=== PATIENT | male | born 1975 | race African-American/Black ===

== ENCOUNTER 2018-04-22 13:12 | Inpatient (IN) | payer OTHER ==
[2018-04-22] MEDS ORDERED: NORMAL SALINE 1000 ML 1,000 ML IV PRN ×2 (14:00→17:24)
[2018-04-22] MEDS ORDERED: INSULIN REG, HUMAN 100 UNIT/ML 3 ML VIAL (PYX) IV ONE ×2 (14:00→16:19)
[2018-04-22] MEDS ORDERED: NORMAL SALINE 1000 ML 1,000 ML IV ONE ×2 (14:00→15:32)
--- NOTE | 2018-04-22 14:01 | ER Document Report ---
ED Medical Screen (RME) - General Chief Complaint: Abdominal Pain Stated Complaint: ABDOMINAL PAIN Time Seen by Provider: 04/22/18 13:52 Notes: 42 years old male presents today with nausea vomiting and diarrhea for the last few days with frequency of urination. His blood sugar was reading high in the ED. New onset diabetes TRAVEL OUTSIDE OF THE [place] IN LAST 30 DAYS: No - Related Data Allergies/Adverse Reactions: No Known Allergies Allergy (Unverified 04/22/18 13:17) Physical Exam - Vital signs Vitals: Temp Pulse Resp BP Pulse Ox 97.3 F 111 H 20 129/87 H 98 04/22/18 13:19 04/22/18 13:19 04/22/18 13:19 04/22/18 13:19 04/22/18 13:19 Course - Vital Signs Vital signs: Temp Pulse Resp BP Pulse Ox 97.3 F 111 H 20 129/87 H 98 04/22/18 13:19 04/22/18 13:19 04/22/18 13:19 04/22/18 13:19 04/22/18 13:19 Doctor's Discharge - Discharge Referrals: SHILA VILLA MD [Primary Care Provider] - Follow up as needed
[2018-04-22 15:13] LABS: ALANINE AMINOTRANSFERASE 45 U/L (21-72); ALBUMIN 5.3 g/dL (3.5-5.0); ALKALINE PHOSPHATASE 163 U/L (38-126); ASPARTATE AMINO TRANSFERASE 30 U/L (17-59); BILIRUBIN,DIRECT 0.5 mg/dL (0.0-0.4); BILIRUBIN,TOTAL 1.1 mg/dL (0.2-1.3); BLOOD UREA NITROGEN 40 mg/dL (7-20); CALCIUM 11.1 mg/dL (8.4-10.2); CHLORIDE 81 mmol/L (98-107); LIPASE 159.5 U/L (23-300); TOTAL PROTEIN 9.2 g/dL (6.3-8.2)
[2018-04-22] MEDS ORDERED: ONDANSETRON HCL INJ/PF 4 MG/2 ML SDV IV ONE (15:15)
[2018-04-22 15:18] LABS: SODIUM 127.6 mmol/L (137-145)
[2018-04-22 15:19] LABS: ANION GAP 38 (5-19)
[2018-04-22 15:23] LABS: CARBON DIOXIDE 9 mmol/L (22-30); GLUCOSE 681 mg/dL (75-110); POTASSIUM 7.2 mmol/L (3.6-5.0)
--- NOTE | 2018-04-22 15:23 | RADIOLOGY REPORT (SQ) ---
EXAM DESCRIPTION: KUB/ABDOMEN (SINGLE VIEW) COMPLETED DATE/TIME: 04/22/2018 3:15 pm REASON FOR STUDY: Abdominal pain COMPARISON: None. NUMBER OF VIEWS: One view. TECHNIQUE: Supine radiographic image of the abdomen acquired. LIMITATIONS: None. FINDINGS: BOWEL GAS PATTERN: Normal bowel gas pattern. No dilated loops. CALCIFICATIONS: No suspicious calcifications. SOFT TISSUES: No gross mass or suggestion of organomegaly. HARDWARE: None in the abdomen. BONES: No acute fracture. No worrisome bone lesions. OTHER: No other significant finding. IMPRESSION: NO RADIOGRAPHIC EVIDENCE FOR ACUTE ABDOMINAL DISEASE. TECHNICAL DOCUMENTATION: JOB ID: [id number] [id number] 2010 [employer]- All Rights Reserved Reading location - IP/workstation name: [email or web address]
[2018-04-22] MEDS ORDERED: GLUCAGON,HUMAN RECOMB 1 MG INJ IM PRN (15:28)
[2018-04-22] MEDS ORDERED: DEXTROSE 50%-WATER 25 GM/50 ML DISP.SYRIN IV PRN ×2 (15:28)
[2018-04-22] MEDS ORDERED: DEXTROSE 40% GEL 15 GM TUBE PO PRN ×2 (15:28)
--- NOTE | 2018-04-22 15:28 | ER Document Report ---
ED General - General Chief Complaint: Abdominal Pain Stated Complaint: ABDOMINAL PAIN Time Seen by Provider: 04/22/18 13:52 Notes: Patient is a 42-year-old male that presents to the emergency department for chief complaint of nausea, vomiting diarrhea, and overall not feeling well. Patient states is not been feeling well for several weeks, this is been progressing over the last few days, to the point where he decided come to the emergency department. He states he has been very thirsty, has a dry mouth, and has been urinating more frequently. Denies history of diabetes. He denies any sick contacts. Denies noting any fevers, chills, night sweats. He states he has been breathing more heavily as well. But denies feeling short of breath, and denies having any chest pain, palpitations, or difficulty breathing. Past Medical History: Hypertension, not currently on medication Past Surgical History: Denies surgical history Social History: Occasional alcohol use, denies tobacco or illicit drug use. Family History: Reviewed and noncontributory for presenting illness Allergies: Reviewed, see documented allergy list. REVIEW OF SYSTEMS: Unless otherwise stated in this report the patient's positive and negative responses for review of systems for constitutional, eyes, ENT, cardiovascular, respiratory, gastrointestinal, neurological, genitourinary, musculoskeletal, and integumentary systems and related systems to the presenting problem are either as stated in the HPI or were not pertinent or were negative for the symptoms and/or complaints related to the presenting medical problem. PHYSICAL EXAMINATION: Vital signs reviewed, nursing noted reviewed. GENERAL: Obese male, well-appearing, well-nourished and in moderate distress, increased work of breathing HEAD: Atraumatic, normocephalic. EYES: Eyes appear normal, extraocular movements intact, sclera anicteric, conjunctiva are normal. ENT: nares patent, oropharynx clear without exudates. Dry mucous membranes. NECK: Normal range of motion, supple without lymphadenopathy LUNGS: Breath sounds clear to auscultation bilaterally and equal. No wheezes rales or rhonchi. Increased work of breathing HEART: Heart rate tachycardic, regular rhythm, no audible murmur ABDOMEN: Soft, obese, nontender, normoactive bowel sounds. No rebound, guarding , or rigidity. No masses appreciated. EXTREMITIES: Nontender, good range of motion, trace bilateral lower extremity edema NEUROLOGICAL: No focal neurological deficits. Moves all extremities spontaneously Motor and sensory grossly intact on exam. PSYCH: Appears uncomfortable, appropriate. SKIN: Warm, Dry, normal turgor, no rashes or lesions noted on exposed skin TRAVEL OUTSIDE OF THE [place] IN LAST 30 DAYS: No - Related Data Allergies/Adverse Reactions: No Known Allergies Allergy (Unverified 04/22/18 13:17) Past Medical History - Social History Smoking Status: Never Smoker Frequency of alcohol use: None Drug Abuse: None Family History: Reviewed & Not Pertinent Patient has suicidal ideation: No Patient has homicidal ideation: No Renal/ Medical History: Denies: Hx Peritoneal Dialysis Physical Exam - Vital signs Vitals: Temp Pulse Resp BP Pulse Ox 97.3 F 111 H 20 129/87 H 98 04/22/18 13:19 04/22/18 13:19 04/22/18 13:19 04/22/18 13:19 04/22/18 13:19 Course - Re-evaluation Re-evalutation: Patient seen and examined vital signs reviewed. Laboratory data and imaging were ordered as appropriate for the patient's presenting symptoms and complaint, with consideration of any critical or life threatening conditions that may be associated with their obtained history and exam as noted above. Patient was treated with 3 L IV fluid bolus, started on insulin infusion, and given Zofran for his nausea Results were reviewed when available and demonstrated multiple lecture light abnormalities, consistent with DKA, severe metabolic acidosis, with an anion gap of 38. Patient's potassium 7.2, we will treat this with IV fluid bolusing, and insulin infusion, will avoid sodium bicarbonate at this time, no QRS widening on his EKG. The patient was re-evaluated and was stable and improving Evaluation was most consistent with severe diabetic ketoacidosis Results were discussed with the patient at this point after careful consideration I feel that that patient should be admitted to the hospital. This was discussed with the patient that it is in the best interest for their care to be admitted for further evaluation and management. Patient agreed with this plan of care. A call was placed to the admitted physician, Dr. Solano who graciously accepted the patient onto their service. *Note is created using voice recognition software and may contain spelling, syntax or grammatical errors. Laboratory 04/22/18 04/22/18 14:28 14:28 WBC Cancelled RBC Cancelled Hgb Cancelled Hct Cancelled MCV Cancelled MCH Cancelled MCHC Cancelled RDW Cancelled Plt Count Cancelled Seg Neutrophils % Cancelled Lymphocytes % Cancelled Monocytes % Cancelled Eosinophils % Cancelled Basophils % Cancelled Absolute Neutrophils Cancelled Absolute Lymphocytes Cancelled Absolute Monocytes Cancelled Absolute Eosinophils Cancelled Absolute Basophils Cancelled Platelet Estimate Cancelled Sodium 127.6 L Potassium 7.2 H* Chloride 81 L Carbon Dioxide 9 L* Anion Gap 38 H BUN 40 H Creatinine 1.95 H Est GFR ( Amer) 46 L Est GFR (Non-Af Amer) 38 L Glucose 681 H* Calcium 11.1 H Total Bilirubin 1.1 Direct Bilirubin 0.5 H Neonat Total Bilirubin Not Reportable Neonat Direct Bilirubin Not Reportable Neonat Indirect Bili Not Reportable AST 30 ALT 45 Alkaline Phosphatase 163 H Total Protein 9.2 H Albumin 5.3 H Lipase 159.5 Slides for Path Review Cancelled Laboratory 04/22/18 04/22/18 04/22/18 14:28 14:28 14:28 WBC Cancelled RBC Cancelled Hgb Cancelled Hct Cancelled MCV Cancelled MCH Cancelled MCHC Cancelled RDW Cancelled Plt Count Cancelled Seg Neutrophils % Cancelled Lymphocytes % Cancelled Monocytes % Cancelled Eosinophils % Cancelled Basophils % Cancelled Absolute Neutrophils Cancelled Absolute Lymphocytes Cancelled Absolute Monocytes Cancelled Absolute Eosinophils Cancelled Absolute Basophils Cancelled Platelet Estimate Cancelled VBG pH VBG pCO2 VBG HCO3 VBG Base Excess Sodium 127.6 L Potassium 7.2 H* Chloride 81 L Carbon Dioxide 9 L* Anion Gap 38 H BUN 40 H Creatinine 1.95 H Est GFR ( Amer) 46 L Est GFR (Non-Af Amer) 38 L Glucose 681 H* POC Glucose Hemoglobin A1c % > 14.0 H Lactic Acid Calcium 11.1 H Total Bilirubin 1.1 Direct Bilirubin 0.5 H Neonat Total Bilirubin Not Reportable Neonat Direct Bilirubin Not Reportable Neonat Indirect Bili Not Reportable AST 30 ALT 45 Alkaline Phosphatase 163 H Total Protein 9.2 H Albumin 5.3 H Lipase 159.5 Urine Color Urine Appearance Urine pH Ur Specific [place] Urine Protein Urine Glucose (UA) Urine Ketones Urine Blood Urine Nitrite Urine Bilirubin Urine Urobilinogen Ur Leukocyte Esterase Urine WBC (Auto) Urine RBC (Auto) Urine Bacteria (Auto) Squamous Epi Cells Auto Urine Mucus (Auto) Urine Ascorbic Acid Slides for Path Review Cancelled 04/22/18 04/22/18 04/22/18 16:00 16:00 16:36 WBC 21.0 H RBC 8.03 H Hgb 17.1 H Hct 55.6 H MCV 69 L MCH 21.3 L MCHC 30.7 L RDW 15.2 H Plt Count 453 H Seg Neutrophils % 86.9 H Lymphocytes % 5.7 L Monocytes % 6.9 Eosinophils % 0.0 Basophils % 0.5 Absolute Neutrophils 18.3 H Absolute Lymphocytes 1.2 Absolute Monocytes 1.4 Absolute Eosinophils 0.0 Absolute Basophils 0.1 Platelet Estimate VBG pH 7.16 L* VBG pCO2 32.6 L VBG HCO3 11.3 L VBG Base Excess -16.2 Sodium Potassium Chloride Carbon Dioxide Anion Gap BUN Creatinine Est GFR ( Amer) Est GFR (Non-Af Amer) Glucose POC Glucose Hemoglobin A1c % Lactic Acid Calcium Total Bilirubin Direct Bilirubin Neonat Total Bilirubin Neonat Direct Bilirubin Neonat Indirect Bili AST ALT Alkaline Phosphatase Total Protein Albumin Lipase Urine Color DARK YELLOW Urine Appearance SLIGHTLY-CLOUDY Urine pH 5.0 Ur Specific [place] 1.022 Urine Protein 30 H Urine Glucose (UA) >=500 H Urine Ketones 80 H Urine Blood SMALL H Urine Nitrite NEGATIVE Urine Bilirubin NEGATIVE Urine Urobilinogen NEGATIVE Ur Leukocyte Esterase NEGATIVE Urine WBC (Auto) 0 Urine RBC (Auto) 0 Urine Bacteria (Auto) TRACE Squamous Epi Cells Auto 1 Urine Mucus (Auto) RARE Urine Ascorbic Acid NEGATIVE Slides for Path Review 04/22/18 04/22/18 04/22/18 17:16 18:00 18:18 WBC RBC Hgb Hct MCV MCH MCHC RDW Plt Count Seg Neutrophils % Lymphocytes % Monocytes % Eosinophils % Basophils % Absolute Neutrophils Absolute Lymphocytes Absolute Monocytes Absolute Eosinophils Absolute Basophils Platelet Estimate VBG pH VBG pCO2 VBG HCO3 VBG Base Excess Sodium 134.1 L Potassium 5.6 H D Chloride 96 L Carbon Dioxide 8 L* Anion Gap 30 H BUN 34 H Creatinine 1.33 H Est GFR ( Amer) > 60 Est GFR (Non-Af Amer) 59 L Glucose 509 H* POC Glucose 542 H* 423 H* Hemoglobin A1c % Lactic Acid Calcium 9.4 Total Bilirubin Direct Bilirubin Neonat Total Bilirubin Neonat Direct Bilirubin Neonat Indirect Bili AST ALT Alkaline Phosphatase Total Protein Albumin Lipase Urine Color Urine Appearance Urine pH Ur Specific [place] Urine Protein Urine Glucose (UA) Urine Ketones Urine Blood Urine Nitrite Urine Bilirubin Urine Urobilinogen Ur Leukocyte Esterase Urine WBC (Auto) Urine RBC (Auto) Urine Bacteria (Auto) Squamous Epi Cells Auto Urine Mucus (Auto) Urine Ascorbic Acid Slides for Path Review 04/22/18 04/22/18 04/22/18 19:12 19:32 20:47 WBC RBC Hgb Hct MCV MCH MCHC RDW Plt Count Seg Neutrophils % Lymphocytes % Monocytes % Eosinophils % Basophils % Absolute Neutrophils Absolute Lymphocytes Absolute Monocytes Absolute Eosinophils Absolute Basophils Platelet Estimate VBG pH VBG pCO2 VBG HCO3 VBG Base Excess Sodium Potassium Chloride Carbon Dioxide Anion Gap BUN Creatinine Est GFR ( Amer) Est GFR (Non-Af Amer) Glucose POC Glucose 388 H 309 H Hemoglobin A1c % Lactic Acid 2.1 Calcium Total Bilirubin Direct Bilirubin Neonat Total Bilirubin Neonat Direct Bilirubin Neonat Indirect Bili AST ALT Alkaline Phosphatase Total Protein Albumin Lipase Urine Color Urine Appearance Urine pH Ur Specific [place] Urine Protein Urine Glucose (UA) Urine Ketones Urine Blood Urine Nitrite Urine Bilirubin Urine Urobilinogen Ur Leukocyte Esterase Urine WBC (Auto) Urine RBC (Auto) Urine Bacteria (Auto) Squamous Epi Cells Auto Urine Mucus (Auto) Urine Ascorbic Acid Slides for Path Review 04/22/18 04/22/18 04/22/18 21:56 22:00 22:53 WBC RBC Hgb Hct MCV MCH MCHC RDW Plt Count Seg Neutrophils % Lymphocytes % Monocytes % Eosinophils % Basophils % Absolute Neutrophils Absolute Lymphocytes Absolute Monocytes Absolute Eosinophils Absolute Basophils Platelet Estimate VBG pH VBG pCO2 VBG HCO3 VBG Base Excess Sodium 137.5 Potassium 5.0 Chloride 102 Carbon Dioxide 15 L Anion Gap 21 H BUN 29 H Creatinine 1.08 Est GFR ( Amer) > 60 Est GFR (Non-Af Amer) > 60 Glucose 320 H POC Glucose 290 H 329 H Hemoglobin A1c % Lactic Acid Calcium 8.9 Total Bilirubin Direct Bilirubin Neonat Total Bilirubin Neonat Direct Bilirubin Neonat Indirect Bili AST ALT Alkaline Phosphatase Total Protein Albumin Lipase Urine Color Urine Appearance Urine pH Ur Specific [place] Urine Protein Urine Glucose (UA) Urine Ketones Urine Blood Urine Nitrite Urine Bilirubin Urine Urobilinogen Ur Leukocyte Esterase Urine WBC (Auto) Urine RBC (Auto) Urine Bacteria (Auto) Squamous Epi Cells Auto Urine Mucus (Auto) Urine Ascorbic Acid Slides for Path Review KUB X-Ray 04/22/18 13:59 IMPRESSION: NO RADIOGRAPHIC EVIDENCE FOR ACUTE ABDOMINAL DISEASE. Chest X-Ray 04/22/18 15:52 IMPRESSION: NO ACUTE RADIOGRAPHIC FINDING IN THE CHEST. KUB X-Ray 04/22/18 13:59 IMPRESSION: NO RADIOGRAPHIC EVIDENCE FOR ACUTE ABDOMINAL DISEASE. - Vital Signs Vital signs: Temp Pulse Resp BP Pulse Ox 97.7 F 105 H 18 124/80 99 04/22/18 22:00 04/22/18 22:00 04/22/18 22:00 04/22/18 21:45 04/22/18 22:00 - Laboratory Result Diagrams: 04/22/18 16:00 04/22/18 22:00 Laboratory results interpreted by me: 04/22/18 04/22/18 04/22/18 14:28 14:28 16:00 WBC RBC Hgb Hct MCV MCH MCHC RDW Plt Count Seg Neutrophils % Lymphocytes % Absolute Neutrophils VBG pH 7.16 L* VBG pCO2 32.6 L VBG HCO3 11.3 L Sodium 127.6 L Potassium 7.2 H* Chloride 81 L Carbon Dioxide 9 L* Anion Gap 38 H BUN 40 H Creatinine 1.95 H Est GFR ( Amer) 46 L Est GFR (Non-Af Amer) 38 L Glucose 681 H* Hemoglobin A1c % > 14.0 H Calcium 11.1 H Direct Bilirubin 0.5 H Alkaline Phosphatase 163 H Total Protein 9.2 H Albumin 5.3 H 04/22/18 16:00 WBC 21.0 H RBC 8.03 H Hgb 17.1 H Hct 55.6 H MCV 69 L MCH 21.3 L MCHC 30.7 L RDW 15.2 H Plt Count 453 H Seg Neutrophils % 86.9 H Lymphocytes % 5.7 L Absolute Neutrophils 18.3 H VBG pH VBG pCO2 VBG HCO3 Sodium Potassium Chloride Carbon Dioxide Anion Gap BUN Creatinine Est GFR ( Amer) Est GFR (Non-Af Amer) Glucose Hemoglobin A1c % Calcium Direct Bilirubin Alkaline Phosphatase Total Protein Albumin - EKG Interpretation by Me Additional EKG results interpreted by me: EKG demonstrates sinus tachycardia with a ventricular rate of 106 bpm, normal axis, normal intervals, no evidence of acute ischemia on this EKG. No prior EKG for comparison. Critical Care Note - Critical Care Note Total time excluding time spent on procedures (mins): 50 Comments: Critical care time 50 minutes exclusive from separate billable procedures for a patient requiring complex medical decision making, and high potential for clinical deterioration. In a patient with severe diabetic ketoacidosis requiring aggressive fluid resuscitation, and frequent reassessments.. Time spent obtaining history from patient or surrogate, discussions with consultants , development of treatment plan with patient or surrogate, evaluation of patient 's response to treatment, examination of patient, ordering and performing treatments and interventions, ordering and review of laboratory studies, re- evaluation of patient's condition, ordering and review of radiographic studies and review of old charts Discharge - Discharge Clinical Impression: Hyperkalemia, Tachycardia DKA (diabetic ketoacidoses) Qualifiers: Diabetes mellitus type: other specified (including PEÑA) Diabetes mellitus complication detail: without coma Qualified Code(s): E13.10 - Other specified diabetes mellitus with ketoacidosis without coma Nausea & vomiting Qualifiers: Vomiting type: unspecified Vomiting Intractability: non-intractable Qualified Code(s): R11.2 - Nausea with vomiting, unspecified Diarrhea Qualifiers: Diarrhea type: unspecified type Qualified Code(s): R19.7 - Diarrhea, unspecified Condition: Serious Disposition: ADMITTED INPATIENT Admitting Provider: Hospitalist - Dr. Solano Unit Admitted: ICU
[2018-04-22 16:19] LABS: VENOUS BLOOD BASE EXCESS -16.2 mmol/L; VENOUS BLOOD HCO3 11.3 mmol/L (20-32); VENOUS BLOOD PCO2 32.6 mmHg (35-63)
[2018-04-22 16:22] LABS: VENOUS BLOOD PH 7.16 (7.30-7.42)
[2018-04-22] MEDS ORDERED: INSULIN REG, HUMAN 100 UNIT/ML 3 ML VIAL (PYX) ONE (16:26)
[2018-04-22] MEDS: NORMAL SALINE 100 ML with INSULIN REGULAR, HUMAN 100 UNIT IV PRN ×2 (16:34)
[2018-04-22 16:44] LABS: ABSOLUTE BASOPHILS # (AUTO) 0.1 10^3/uL (0.0-0.2); ABSOLUTE LYMPHOCYTES (AUTO) 1.2 10^3/uL (0.5-4.7); ABSOLUTE MONOCYTES (AUTO) 1.4 10^3/uL (0.1-1.4); ABSOLUTE NEUT (AUTO) 18.3 10^3/uL (1.7-8.2); BASOPHILS % (AUTO) 0.5 % (0-2); HEMOGLOBIN 17.1 g/dL (13.5-17.0); LYMPHOCYTES % (AUTO) 5.7 % (13-45); MEAN CORPUSCULAR HEMOGLOBIN 21.3 pg (27.0-33.4); MEAN CORPUSCULAR HGB CONC 30.7 g/dL (32.0-36.0); MEAN CORPUSCULAR VOLUME 69 fl (80-97); MONOCYTES % (AUTO) 6.9 % (3-13); PLATELET COUNT 453 10^3/uL (150-450); RED CELL DISTRIBUTION WIDTH 15.2 % (11.5-14.0); SEGMENTED NEUTROPHILS % (AUTO) 86.9 % (42-78); TOTAL CELLS COUNTED % (AUTO) 100 %
[2018-04-22 16:48] LABS: HEMATOCRIT 55.6 % (37.9-51.0); RED BLOOD COUNT 8.03 10^6/uL (4.35-5.55)
[2018-04-22 17:07] LABS: APPEARANCE,URINE SLIGHTLY-CLOUDY; BILIRUBIN,URINE NEGATIVE (NEGATIVE); GLUCOSE, URINE >=500 mg/dL (NEGATIVE); KETONES,URINE 80 mg/dL (NEGATIVE); LEUKOCYTE ESTERASE,URINE NEGATIVE (NEGATIVE); NITRITE,URINE NEGATIVE (NEGATIVE); PROTEIN,URINE 30 mg/dL (NEGATIVE); URINE SPECIFIC GRAVITY 1.022; UROBILINOGEN,URINE NEGATIVE mg/dL (<2.0)
[2018-04-22 17:08] LABS: COLOR,URINE DARK YELLOW
--- NOTE | 2018-04-22 17:33 | RADIOLOGY REPORT (SQ) ---
EXAM DESCRIPTION: CHEST SINGLE VIEW COMPLETED DATE/TIME: 04/22/2018 4:43 pm REASON FOR STUDY: shortness of breath COMPARISON: None. EXAM PARAMETERS: NUMBER OF VIEWS: One view. TECHNIQUE: Single frontal radiographic view of the chest acquired. RADIATION DOSE: NA LIMITATIONS: None. FINDINGS: LUNGS AND PLEURA: No opacities, masses or pneumothorax. No pleural effusion. MEDIASTINUM AND HILAR STRUCTURES: No masses. Contour normal. HEART AND VASCULAR STRUCTURES: Heart normal in size. Normal vasculature. BONES: No acute findings. HARDWARE: None in the chest. OTHER: No other significant finding. IMPRESSION: NO ACUTE RADIOGRAPHIC FINDING IN THE CHEST. TECHNICAL DOCUMENTATION: JOB ID: [id number] [place]-72 2010 [employer]- All Rights Reserved Reading location - IP/workstation name: [email or web address]
[2018-04-22] MEDS ORDERED: ONDANSETRON HCL INJ/PF 4 MG/2 ML SDV IV PRN (17:35)
[2018-04-22] MEDS: NORMAL SALINE 1000 ML 1,000 ML IV PRN (17:45)
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
[2018-04-22 18:46] LABS: BLOOD UREA NITROGEN 34 mg/dL (7-20); CALCIUM 9.4 mg/dL (8.4-10.2); CHLORIDE 96 mmol/L (98-107)
[2018-04-22 18:52] LABS: SODIUM 134.1 mmol/L (137-145)
[2018-04-22 18:55] LABS: ANION GAP 30 (5-19); POTASSIUM 5.6 mmol/L (3.6-5.0)
[2018-04-22 18:58] LABS: CARBON DIOXIDE 8 mmol/L (22-30); GLUCOSE 509 mg/dL (75-110)
--- NOTE | 2018-04-22 20:25 | EKG REPORT ---
SEVERITY:- BORDERLINE ECG - SINUS TACHYCARDIA PROBABLE LEFT ATRIAL ABNORMALITY : Confirmed by: Lissa Bauman MD 22-Apr-2018 20:24:39
[2018-04-22 22:16] LABS: BLOOD UREA NITROGEN 29 mg/dL (7-20); CALCIUM 8.9 mg/dL (8.4-10.2); GLUCOSE 320 mg/dL (75-110)
[2018-04-22 22:21] LABS: CARBON DIOXIDE 15 mmol/L (22-30); CHLORIDE 102 mmol/L (98-107); SODIUM 137.5 mmol/L (137-145)
[2018-04-22 22:22] LABS: ANION GAP 21 (5-19)
[2018-04-23] MEDS: NORMAL SALINE 1000 ML 1,000 ML IV PRN ×3 (01:08→20:59)
[2018-04-23] MEDS ORDERED: INSULIN REG, HUMAN 100 UNIT/ML 3 ML VIAL (PYX) ONE (01:46)
[2018-04-23] MEDS: NORMAL SALINE 100 ML with INSULIN REGULAR, HUMAN 100 UNIT IV PRN ×4 (02:03→08:34)
[2018-04-23 02:28] LABS: ANION GAP 14 (5-19); BLOOD UREA NITROGEN 26 mg/dL (7-20); CALCIUM 9.4 mg/dL (8.4-10.2); CARBON DIOXIDE 17 mmol/L (22-30); CHLORIDE 107 mmol/L (98-107); GLUCOSE 198 mg/dL (75-110); POTASSIUM 4.9 mmol/L (3.6-5.0); SODIUM 138.2 mmol/L (137-145)
[2018-04-23] MEDS: DEXTROSE 5%-1/2 NORMAL SALINE 1,000 ML IV PRN ×2 (03:04→08:29)
[2018-04-23 06:15] LABS: ANION GAP 10 (5-19); BLOOD UREA NITROGEN 22 mg/dL (7-20); CALCIUM 9.1 mg/dL (8.4-10.2); CARBON DIOXIDE 21 mmol/L (22-30); CHLORIDE 108 mmol/L (98-107); GLUCOSE 177 mg/dL (75-110); POTASSIUM 4.3 mmol/L (3.6-5.0); SODIUM 138.8 mmol/L (137-145)
[2018-04-23] MEDS: BENZOCAINE/MENTHOL SORE THROAT LOZENGE BUCCAL PRN ×2 (08:22→20:58)
[2018-04-23 08:40] LABS: ABSOLUTE BASOPHILS # (AUTO) 0.2 10^3/uL (0.0-0.2); ABSOLUTE LYMPHOCYTES (AUTO) 2.2 10^3/uL (0.5-4.7); ABSOLUTE MONOCYTES (AUTO) 1.6 10^3/uL (0.1-1.4); ABSOLUTE NEUT (AUTO) 10.8 10^3/uL (1.7-8.2); BASOPHILS % (AUTO) 1.2 % (0-2); EOSINOPHILS % (AUTO) 0.2 % (0-6); HEMATOCRIT 48.5 % (37.9-51.0); HEMOGLOBIN 15.5 g/dL (13.5-17.0); LYMPHOCYTES % (AUTO) 14.7 % (13-45); MEAN CORPUSCULAR HEMOGLOBIN 21.1 pg (27.0-33.4); MEAN CORPUSCULAR VOLUME 66 fl (80-97); MONOCYTES % (AUTO) 10.6 % (3-13); PLATELET COUNT 347 10^3/uL (150-450); RED BLOOD COUNT 7.36 10^6/uL (4.35-5.55); RED CELL DISTRIBUTION WIDTH 14.9 % (11.5-14.0); SEGMENTED NEUTROPHILS % (AUTO) 73.3 % (42-78); TOTAL CELLS COUNTED % (AUTO) 100 %; WHITE BLOOD COUNT 14.7 10^3/uL (4.0-10.5)
[2018-04-23] MEDS ORDERED: METOCLOPRAMIDE HCL ORAL SOLN 10 MG/10 ML UDCUP PO ONE (09:00)
[2018-04-23] MEDS ORDERED: MAG HYDROX/AL HYDROX/SIMETH SUSP 30 ML UDCUP PO ONE (09:00)
[2018-04-23] MEDS ORDERED: LIDOCAINE 2% VISCOUS SOLN 20 ML UDCUP PO ONE (09:00)
[2018-04-23] MEDS: ENOXAPARIN SODIUM INJ 30 MG/0.3 ML DISP.SYRIN SUBCUT SCH (09:11)
[2018-04-23] MEDS ORDERED: INSULIN DETEMIR 100 UNIT/ML 3 ML PEN SUBCUT SCH (10:00)
[2018-04-23] MEDS: INSULIN DETEMIR 100 UNIT/ML 3 ML PEN SUBCUT SCH ×2 (10:53→22:46)
[2018-04-23 11:36] LABS: ANION GAP 10 (5-19); BLOOD UREA NITROGEN 19 mg/dL (7-20); CALCIUM 8.8 mg/dL (8.4-10.2); CARBON DIOXIDE 21 mmol/L (22-30); CHLORIDE 105 mmol/L (98-107); GLUCOSE 208 mg/dL (75-110); POTASSIUM 4.6 mmol/L (3.6-5.0); SODIUM 136.2 mmol/L (137-145)
[2018-04-23] MEDS ORDERED: GLUCAGON,HUMAN RECOMB 1 MG INJ IM PRN (12:30)
[2018-04-23] MEDS ORDERED: DEXTROSE 50%-WATER SYRINGE 12.5 GM/25 ML DOSE IV PRN (12:30)
[2018-04-23] MEDS ORDERED: DEXTROSE 40% GEL 15 GM TUBE X 2 PO PRN (12:30)
[2018-04-23] MEDS ORDERED: DEXTROSE 40% GEL 15 GM TUBE PO PRN (12:30)
[2018-04-23] MEDS ORDERED: DEXTROSE 50%-WATER SYRINGE 25 GM/50 ML DOSE IV PRN (12:30)
[2018-04-23] MEDS: INSULIN LISPRO 100 UNIT/ML 3 ML VIAL SUBCUT PRN ×2 (12:47→18:00)
[2018-04-23] MEDS: NYSTATIN 500000 UNIT/5 ML UDCUP PO SCH ×2 (12:47→18:00)
--- NOTE | 2018-04-23 15:14 | PDOC PROGRESS REPORT ---
Subjective Progress Note for:: 04/23/18 Subjective:: DELMA LOCKE is a 42 year old male who denies a previous past medical history aside from a history of sleep apnea on CPAP who was admitted for severe DKA. Patient had episodes of apnea and transient desaturation on CPAP last night with very loud and persistent snoring. Patient's DKA has resolved. He denies acute complaints aside from throat dryness and discomfort. Denies chest pain, abdominal pain or shortness of breath. No recurrence of diarrhea so far. Patient had episodes of apnea and transient desaturation on CPAP last night. He does have low lying palate, large tongue with the uvula not visible on mouth opening. Reason For Visit: SEVERE DKA Physical Exam Vital Signs: Temp Pulse Resp BP Pulse Ox 97.1 F 94 21 H 123/82 98 04/23/18 14:00 04/23/18 14:00 04/23/18 14:00 04/23/18 14:00 04/23/18 14:00 Intake & Output 04/22/18 04/23/18 04/24/18 06:59 06:59 06:59 Intake Total 2554 4588 Output Total 1300 740 Balance 1254 3848 Weight 323 lb 10.217 oz General appearance: PRESENT: no acute distress, obese Head exam: PRESENT: atraumatic, normocephalic Eye exam: PRESENT: conjunctiva pink, EOMI, PERRLA. ABSENT: scleral icterus Ear exam: PRESENT: normal external ear exam Mouth exam: PRESENT: moist, tongue midline Throat exam: PRESENT: tonsillar erythema, other - No exudates, whitish lesions and he admits been upper palate Neck exam: ABSENT: carotid bruit, JVD, lymphadenopathy, thyromegaly Respiratory exam: PRESENT: clear to auscultation muna. ABSENT: rales, rhonchi, wheezes Cardiovascular exam: PRESENT: RRR. ABSENT: diastolic murmur, rubs, systolic murmur Pulses: PRESENT: normal dorsalis pedis pul GI/Abdominal exam: PRESENT: normal bowel sounds, soft. ABSENT: distended, guarding, mass, organolmegaly, rebound, tenderness Rectal exam: PRESENT: deferred Extremities exam: PRESENT: full ROM. ABSENT: calf tenderness, clubbing, pedal edema Neurological exam: PRESENT: alert, awake, oriented to person, oriented to place , oriented to time, oriented to situation, CN II-XII grossly intact. ABSENT: motor sensory deficit Results Laboratory Results: 04/23/18 05:54 04/23/18 10:53 04/22/18 04/22/18 04/22/18 18:00 19:12 22:00 WBC RBC Hgb Hct MCV MCH MCHC RDW Plt Count Seg Neutrophils % Lymphocytes % Monocytes % Eosinophils % Basophils % Absolute Neutrophils Absolute Lymphocytes Absolute Monocytes Absolute Eosinophils Absolute Basophils Sodium 134.1 L 137.5 Potassium 5.6 H D 5.0 Chloride 96 L 102 Carbon Dioxide 8 L* 15 L Anion Gap 30 H 21 H BUN 34 H 29 H Creatinine 1.33 H 1.08 Est GFR ( Amer) > 60 > 60 Est GFR (Non-Af Amer) 59 L > 60 Glucose 509 H* 320 H Lactic Acid 2.1 Calcium 9.4 8.9 04/23/18 04/23/18 04/23/18 02:02 05:54 05:54 WBC 14.7 H RBC 7.36 H Hgb 15.5 Hct 48.5 MCV 66 L MCH 21.1 L MCHC 32.0 RDW 14.9 H Plt Count 347 Seg Neutrophils % 73.3 Lymphocytes % 14.7 Monocytes % 10.6 Eosinophils % 0.2 Basophils % 1.2 Absolute Neutrophils 10.8 H Absolute Lymphocytes 2.2 Absolute Monocytes 1.6 H Absolute Eosinophils 0.0 Absolute Basophils 0.2 Sodium 138.2 138.8 Potassium 4.9 4.3 Chloride 107 108 H Carbon Dioxide 17 L 21 L Anion Gap 14 10 BUN 26 H 22 H Creatinine 0.88 0.83 Est GFR ( Amer) > 60 > 60 Est GFR (Non-Af Amer) > 60 > 60 Glucose 198 H 177 H Lactic Acid Calcium 9.4 9.1 04/23/18 10:53 WBC RBC Hgb Hct MCV MCH MCHC RDW Plt Count Seg Neutrophils % Lymphocytes % Monocytes % Eosinophils % Basophils % Absolute Neutrophils Absolute Lymphocytes Absolute Monocytes Absolute Eosinophils Absolute Basophils Sodium 136.2 L Potassium 4.6 Chloride 105 Carbon Dioxide 21 L Anion Gap 10 BUN 19 Creatinine 0.78 Est GFR ( Amer) > 60 Est GFR (Non-Af Amer) > 60 Glucose 208 H Lactic Acid Calcium 8.8 Impressions: KUB X-Ray 04/22/18 13:59 IMPRESSION: NO RADIOGRAPHIC EVIDENCE FOR ACUTE ABDOMINAL DISEASE. Chest X-Ray 04/22/18 15:52 IMPRESSION: NO ACUTE RADIOGRAPHIC FINDING IN THE CHEST. Assessment & Plan - Diagnosis (1) DKA (diabetic ketoacidoses) Qualifiers: Diabetes mellitus type: other specified (including PEÑA) Diabetes mellitus complication detail: without coma Qualified Code(s): E13.10 - Other specified diabetes mellitus with ketoacidosis without coma Is this a current diagnosis for this admission?: Yes Plan: Resolved. DKA is likely secondary to severely uncontrolled and undiagnosed diabetes mellitus. Patient is tolerating diet well. He will be transitioned to Levemir 15 units twice daily. Will titrate insulin regimen based on succeeding blood sugar levels. Discontinue insulin drip 2 hours after administration of Levemir. Continue sliding scale coverage. (2) Diabetes mellitus, new onset Is this a current diagnosis for this admission?: Yes Plan: Patient denies a previous diagnosis of diabetes. This is presumed to be type 2 diabetes mellitus. Patient likely has underlying undiagnosed diabetes mellitus in the past several months due to A1c being elevated at >14. Start Levemir 15 u bid. (3) Acute kidney injury Is this a current diagnosis for this admission?: Yes Plan: Resolved with Iv fluids.This is likely prerenal RANJAN from severe dehydration and DKA. Continue IV fluids. (4) High anion gap metabolic acidosis Is this a current diagnosis for this admission?: Yes Plan: Secondary to DKA. Resolved. (5) Acute diarrhea Is this a current diagnosis for this admission?: Yes Plan: Resolved. No episode of diarrhea since admission hence C. difficile testing was not sent. (6) BIMAL (obstructive sleep apnea) Is this a current diagnosis for this admission?: Yes Plan: Severe BIMAL. He does have low lying palate, large tongue with the uvula not visible on mouth opening. Patient had episodes of apnea and transient desaturation on CPAP last night. He has been switched to BIPAP at sleep/night. Will consult pulmonology for further recommendations. - Time Time Spent with patient: 25-34 minutes
[2018-04-23] MEDS: LANSOPRAZOLE 30 MG TAB.RAP.DR PO SCH (18:00)
[2018-04-23] MEDS: ACETAMINOPHEN 325 MG TABLET PO PRN (20:58)
[2018-04-24] MEDS: NYSTATIN 500000 UNIT/5 ML UDCUP PO SCH ×5 (00:18→23:51)
[2018-04-24 03:34] LABS: ANION GAP 12 (5-19); BLOOD UREA NITROGEN 15 mg/dL (7-20); CALCIUM 8.4 mg/dL (8.4-10.2); CARBON DIOXIDE 20 mmol/L (22-30); CHLORIDE 102 mmol/L (98-107); GLUCOSE 305 mg/dL (75-110); POTASSIUM 4.6 mmol/L (3.6-5.0); SODIUM 133.5 mmol/L (137-145)
[2018-04-24] MEDS: LANSOPRAZOLE 30 MG TAB.RAP.DR PO SCH ×2 (05:09→17:22)
[2018-04-24] MEDS: NORMAL SALINE 1000 ML 1,000 ML IV PRN ×3 (05:09→22:11)
[2018-04-24 05:37] LABS: ARTERIAL BLOOD BASE EXCESS -4.3 mmol/L; ARTERIAL BLOOD H2CO3 1.17 mmol/L (1.05-1.35); ARTERIAL BLOOD HCO3 20.9 mmol/L (20-24); ARTERIAL BLOOD O2 SATURATION 95.2 % (94-98); ARTERIAL BLOOD PCO2 38.9 mmHg (35-45); ARTERIAL BLOOD PH 7.35 (7.35-7.45); ARTERIAL BLOOD PO2 79.2 mmHg (80-100); ARTERIAL BLOOD TOTAL CO2 22.1 mmol/L (23-27)
[2018-04-24 05:38] LABS: ARTERIAL BLOOD FIO2 ROOM AIR
--- NOTE | 2018-04-24 06:59 | RADIOLOGY REPORT (SQ) ---
EXAM DESCRIPTION: XR CHEST 1 VIEW COMPLETED DATE/TME: 04/24/2018 06:00 CLINICAL HISTORY: 42 years Male, resp fail COMPARISON: 2 days prior. NUMBER OF VIEWS/TECHNIQUE: 1/AP FINDINGS: Clear lungs, normal cardiac silhouette. No pneumothorax. Stable bony thorax. IMPRESSION: No acute cardiopulmonary findings.
[2018-04-24 07:29] LABS: ABSOLUTE BASOPHILS # (AUTO) 0.1 10^3/uL (0.0-0.2); ABSOLUTE LYMPHOCYTES (AUTO) 2.2 10^3/uL (0.5-4.7); ABSOLUTE MONOCYTES (AUTO) 1.1 10^3/uL (0.1-1.4); ABSOLUTE NEUT (AUTO) 7.2 10^3/uL (1.7-8.2); BASOPHILS % (AUTO) 0.5 % (0-2); EOSINOPHILS % (AUTO) 0.3 % (0-6); HEMATOCRIT 44.4 % (37.9-51.0); HEMOGLOBIN 14.3 g/dL (13.5-17.0); MEAN CORPUSCULAR HEMOGLOBIN 21.4 pg (27.0-33.4); MEAN CORPUSCULAR HGB CONC 32.2 g/dL (32.0-36.0); MEAN CORPUSCULAR VOLUME 66 fl (80-97); MONOCYTES % (AUTO) 10.2 % (3-13); PLATELET COUNT 271 10^3/uL (150-450); RED BLOOD COUNT 6.68 10^6/uL (4.35-5.55); RED CELL DISTRIBUTION WIDTH 14.6 % (11.5-14.0); TOTAL CELLS COUNTED % (AUTO) 100 %; WHITE BLOOD COUNT 10.5 10^3/uL (4.0-10.5)
[2018-04-24 07:45] LABS: ALANINE AMINOTRANSFERASE 29 U/L (21-72); ALBUMIN 3.3 g/dL (3.5-5.0); ALKALINE PHOSPHATASE 102 U/L (38-126); ANION GAP 11 (5-19); ASPARTATE AMINO TRANSFERASE 48 U/L (17-59); BILIRUBIN,DIRECT 0.6 mg/dL (0.0-0.4); BILIRUBIN,TOTAL 2.1 mg/dL (0.2-1.3); BLOOD UREA NITROGEN 15 mg/dL (7-20); CALCIUM 8.8 mg/dL (8.4-10.2); CARBON DIOXIDE 22 mmol/L (22-30); CHLORIDE 102 mmol/L (98-107); CHOLESTEROL 162.26 mg/dL (0-200); GLUCOSE 260 mg/dL (75-110); POTASSIUM 4.7 mmol/L (3.6-5.0); SODIUM 134.7 mmol/L (137-145); TOTAL PROTEIN 6.2 g/dL (6.3-8.2); TRIGLYCERIDES 213 mg/dL (<150)
[2018-04-24 07:56] LABS: DIRECT LDL 98 mg/dL (<100)
[2018-04-24 08:01] LABS: VLDL CHOLESTEROL 42.6 mg/dL (10-31)
[2018-04-24] MEDS: INSULIN LISPRO 100 UNIT/ML 3 ML VIAL SUBCUT SCH ×3 (09:02→17:23)
[2018-04-24] MEDS: INSULIN LISPRO 100 UNIT/ML 3 ML VIAL SUBCUT PRN ×4 (09:03→22:25)
[2018-04-24] MEDS: FLUTICASONE NASAL SPRAY 50 MCG/SPRY 120 SPRAY/16 GM NASL SCH ×2 (10:35→22:12)
[2018-04-24] MEDS: NYSTATIN TOPICAL POWDER 15 GM TP SCH ×2 (10:36→17:27)
[2018-04-24] MEDS: INSULIN DETEMIR 100 UNIT/ML 3 ML PEN SUBCUT SCH ×2 (10:38→22:21)
[2018-04-24] MEDS: ENOXAPARIN SODIUM INJ 30 MG/0.3 ML DISP.SYRIN SUBCUT SCH (10:39)
--- NOTE | 2018-04-24 10:48 | PDOC CONSULTATION ---
Consultation Consult Date: 04/24/18 Attending physician:: DIVYA JAIME Consult reason:: Apnea History of Present Illness Admission Date/PCP: 04/22/18 16:36 SHILA VILLA MD History of Present Illness: DELMA LOCKE is a 42 year old male, presented to the ED for abdominal pain to be in DKA as per history of having diabetes admit to having obstructive sleep apnea and has CPAP at home but is not been evaluated this for this in the last 24 months had witnessed observed apneas despite being on BiPAP inspiratory pressure 20 expiratory pressure 8 with an FiO2 of 45%. Denies shortness of breath or dips and exertion at home he is a dairy truck driver he has occasional cough but is nonproductive no hemoptysis PPD status is unknown no history of chronic lung disease as a child or as an adolescent he admits to exposure to passive smoke as a child as well as an adult. He has never smoked. As stated above he is been a dairy truck driver and thinks been exposed to large amounts of passive smoke as well as diesel fumes. Has no pets no angina-like chest pain sleeps on 0-2 pillows occasional PND occasional nocturnal cough but he denies any edema spouse states that he snores is restless when he sleeps he admits to nocturia 3-4 times per night admits to unrestful sleep and excessive daytime somnolence. Past Medical History Pulmonary Medical History: Reports: Sleep Apnea Psychiatric Medical History: Denies: Depression Past Surgical History Past Surgical History: Reports: None Social History Information Source: Patient, [facility] Records Lives with: Spouse/Significant other Smoking Status: Never Smoker Passive smoke exposure as: Both Frequency of Alcohol Use: Rare Hx Recreational Drug Use: No Drugs: None Hx Prescription Drug Abuse: No Do you have pets?: No Have you had any respiratory illnesses as a child?: No Have you been exposed to any sick contacts recently?: No Have you had any recent respiratory illnesses?: No Have you travelled outside of [place] in the past 12 months?: No Family History Family History: Malignancy Parental Family History Reviewed: Yes Children Family History Reviewed: Yes Sibling(s) Family History Reviewed.: Yes Medication/Allergy Home Medications: No Home Medications 04/23/18 Allergies/Adverse Reactions: No Known Allergies Allergy (Unverified 04/22/18 13:17) Review of Systems Constitutional: PRESENT: fatigue. ABSENT: night sweats Eyes: ABSENT: visual disturbances Ears: ABSENT: hearing changes Nose, Mouth, and Throat: ABSENT: mouth pain, sore throat Cardiovascular: ABSENT: orthropnea, palpitations Respiratory: ABSENT: dyspnea, hemoptysis Gastrointestinal: PRESENT: abdominal pain, diarrhea. ABSENT: bloating, coffee ground emesis, dysphagia, heartburn, hematemesis, hematochezia, melena Genitourinary: ABSENT: dysuria, hematuria Musculoskeletal: ABSENT: deformity, joint swelling Integumentary: ABSENT: lesions, pruritus, rash Neurological: ABSENT: abnormal gait, abnormal movements, abnormal speech, confusion, focal weakness, frequent falls, lack of coordination, memory loss Psychiatric: ABSENT: hallucinations, homidical ideation, suicidal ideation Endocrine: PRESENT: polydipsia, polyuria. ABSENT: cold intolerance, heat intolerance Hematologic/Lymphatic: ABSENT: easy bruising Allergic/Immunologic: PRESENT: seasonal rhinorrhea Physical Exam Vital Signs: Temp Pulse Resp BP Pulse Ox 97.7 F 85 20 125/80 96 04/24/18 05:31 04/24/18 05:31 04/24/18 06:00 04/24/18 05:31 04/24/18 05:31 Intake & Output 04/23/18 04/24/18 04/25/18 06:59 06:59 06:59 Intake Total 2554 8828 Output Total 1300 3490 Balance 1254 5338 Weight 146.8 kg 148.2 kg General appearance: PRESENT: no acute distress, cooperative, disheveled, morbidly obese Head exam: PRESENT: atraumatic, normocephalic Eye exam: PRESENT: conjunctiva pale, EOMI. ABSENT: nystagmus, periorbital swelling, scleral icterus Mouth exam: PRESENT: dry mucosa, neck supple, tongue midline, other - Enlarged, Neck exam: ABSENT: carotid bruit, JVD, lymphadenopathy, thyromegaly, tracheal deviation, tracheostomy Respiratory exam: PRESENT: decreased breath sounds, prolonged expiratory phas, rhonchi, unlabored. ABSENT: retraction, stridor Cardiovascular exam: PRESENT: RRR, +S1, +S2 Pulses: PRESENT: normal radial pulses GI/Abdominal exam: PRESENT: soft. ABSENT: tenderness Extremities exam: ABSENT: calf tenderness, clubbing, joint swelling Musculoskeletal exam: ABSENT: deformity, dislocation Neurological exam: PRESENT: alert, awake Psychiatric exam: PRESENT: normal mood Skin exam: PRESENT: dry, warm Results Laboratory Results: 04/24/18 07:10 04/24/18 07:10 04/23/18 04/24/18 04/24/18 10:53 02:15 03:05 WBC RBC Hgb Hct MCV MCH MCHC RDW Plt Count Seg Neutrophils % Lymphocytes % Monocytes % Eosinophils % Basophils % Absolute Neutrophils Absolute Lymphocytes Absolute Monocytes Absolute Eosinophils Absolute Basophils Carbonic Acid HCO3/H2CO3 Ratio ABG pH ABG pCO2 ABG pO2 ABG HCO3 ABG O2 Saturation ABG Base Excess FiO2 Sodium 136.2 L Cancelled 133.5 L Potassium 4.6 Cancelled 4.6 Chloride 105 Cancelled 102 Carbon Dioxide 21 L Cancelled 20 L Anion Gap 10 Cancelled 12 BUN 19 Cancelled 15 Creatinine 0.78 Cancelled 0.72 Est GFR ( Amer) > 60 Cancelled > 60 Est GFR (Non-Af Amer) > 60 Cancelled > 60 Glucose 208 H Cancelled 305 H Calcium 8.8 Cancelled 8.4 Total Bilirubin AST ALT Alkaline Phosphatase Total Protein Albumin Triglycerides Cholesterol LDL Cholesterol Direct VLDL Cholesterol HDL Cholesterol 04/24/18 04/24/18 04/24/18 05:25 07:10 07:10 WBC 10.5 RBC 6.68 H Hgb 14.3 Hct 44.4 MCV 66 L MCH 21.4 L MCHC 32.2 RDW 14.6 H Plt Count 271 Seg Neutrophils % 68.0 Lymphocytes % 21.0 Monocytes % 10.2 Eosinophils % 0.3 Basophils % 0.5 Absolute Neutrophils 7.2 Absolute Lymphocytes 2.2 Absolute Monocytes 1.1 Absolute Eosinophils 0.0 Absolute Basophils 0.1 Carbonic Acid 1.17 HCO3/H2CO3 Ratio 17:1 ABG pH 7.35 ABG pCO2 38.9 ABG pO2 79.2 L ABG HCO3 20.9 ABG O2 Saturation 95.2 ABG Base Excess -4.3 FiO2 ROOM AIR Sodium 134.7 L Potassium 4.7 Chloride 102 Carbon Dioxide 22 Anion Gap 11 BUN 15 Creatinine 0.73 Est GFR ( Amer) > 60 Est GFR (Non-Af Amer) > 60 Glucose 260 H Calcium 8.8 Total Bilirubin 2.1 H AST 48 ALT 29 Alkaline Phosphatase 102 Total Protein 6.2 L Albumin 3.3 L Triglycerides 213 H Cholesterol 162.26 LDL Cholesterol Direct 98 VLDL Cholesterol 42.6 H HDL Cholesterol 31 L Impressions: KUB X-Ray 04/22/18 13:59 IMPRESSION: NO RADIOGRAPHIC EVIDENCE FOR ACUTE ABDOMINAL DISEASE. Chest X-Ray 04/24/18 06:00 IMPRESSION: No acute cardiopulmonary findings. Assessment & Plan - Diagnosis (1) Obesity Qualifiers: Obesity type: due to excess calories (2) DKA (diabetic ketoacidoses) Qualifiers: Diabetes mellitus type: other specified (including PEÑA) Diabetes mellitus complication detail: without coma Qualified Code(s): E13.10 - Other specified diabetes mellitus with ketoacidosis without coma Is this a current diagnosis for this admission?: Yes Plan: Improving, new onset diabetes (3) BIMAL (obstructive sleep apnea) Is this a current diagnosis for this admission?: Yes Plan: BiPAP at 20/8 still reported apneas needs to have a nocturnal polysomnogram the day of discharge and if these apneas a central obstructive have his BiPAP titrated or initiate trilogy - Time Total Critical Time (Minutes): 55
[2018-04-24 13:16] LABS: ANION GAP 12 (5-19); BLOOD UREA NITROGEN 14 mg/dL (7-20); CALCIUM 8.9 mg/dL (8.4-10.2); CARBON DIOXIDE 19 mmol/L (22-30); CHLORIDE 101 mmol/L (98-107); GLUCOSE 258 mg/dL (75-110); POTASSIUM 4.6 mmol/L (3.6-5.0); SODIUM 132.4 mmol/L (137-145)
[2018-04-24] MEDS: ACETAMINOPHEN 325 MG TABLET PO PRN ×2 (14:43→22:20)
--- NOTE | 2018-04-24 15:18 | PDOC PROGRESS REPORT ---
Subjective Progress Note for:: 04/24/18 Subjective:: DELMA LOCKE is a 42 year old male who denies a previous past medical history aside from a history of sleep apnea on CPAP who was admitted for severe DKA. Patient's DKA has resolved. He has been transitioned to long acting insulin. Denies chest pain, abdominal pain or shortness of breath. No recurrence of diarrhea so far. Patient continues to have episodes of apnea. He does have low lying palate, large tongue with the uvula not visible on mouth opening. He was not able to tolerate BIPAP this morning upon encounter as he complained of significant nasal congestion. He does complain of having some pruritic rashes on the groin. Sugars have been running in the 300s. Reason For Visit: SEVERE DKA Physical Exam Vital Signs: Temp Pulse Resp BP Pulse Ox 97.7 F 91 16 134/89 H 98 04/24/18 10:00 04/24/18 10:00 04/24/18 12:06 04/24/18 12:06 04/24/18 12:06 Intake & Output 04/23/18 04/24/18 04/25/18 06:59 06:59 06:59 Intake Total 2554 8828 2376 Output Total 1300 3490 1301 Balance 1254 5338 1075 Weight 323 lb 10.217 oz 326 lb 11.601 oz 326 lb 11.601 oz General appearance: PRESENT: no acute distress, morbidly obese Head exam: PRESENT: atraumatic, normocephalic Eye exam: PRESENT: conjunctiva pink, EOMI, PERRLA. ABSENT: scleral icterus Ear exam: PRESENT: normal external ear exam Mouth exam: PRESENT: moist, tongue midline Neck exam: ABSENT: carotid bruit, JVD, lymphadenopathy, thyromegaly Respiratory exam: PRESENT: clear to auscultation muna. ABSENT: rales, rhonchi, wheezes Cardiovascular exam: PRESENT: RRR. ABSENT: diastolic murmur, rubs, systolic murmur Pulses: PRESENT: normal dorsalis pedis pul GI/Abdominal exam: PRESENT: normal bowel sounds, soft. ABSENT: distended, guarding, mass, organolmegaly, rebound, tenderness Rectal exam: PRESENT: deferred Neurological exam: PRESENT: alert, awake, oriented to person, oriented to place , oriented to time, oriented to situation, CN II-XII grossly intact. ABSENT: motor sensory deficit Results Laboratory Results: 04/24/18 07:10 04/24/18 12:26 04/24/18 04/24/18 04/24/18 02:15 03:05 05:25 WBC RBC Hgb Hct MCV MCH MCHC RDW Plt Count Seg Neutrophils % Lymphocytes % Monocytes % Eosinophils % Basophils % Absolute Neutrophils Absolute Lymphocytes Absolute Monocytes Absolute Eosinophils Absolute Basophils Carbonic Acid 1.17 HCO3/H2CO3 Ratio 17:1 ABG pH 7.35 ABG pCO2 38.9 ABG pO2 79.2 L ABG HCO3 20.9 ABG O2 Saturation 95.2 ABG Base Excess -4.3 FiO2 ROOM AIR Sodium Cancelled 133.5 L Potassium Cancelled 4.6 Chloride Cancelled 102 Carbon Dioxide Cancelled 20 L Anion Gap Cancelled 12 BUN Cancelled 15 Creatinine Cancelled 0.72 Est GFR ( Amer) Cancelled > 60 Est GFR (Non-Af Amer) Cancelled > 60 Glucose Cancelled 305 H Calcium Cancelled 8.4 Total Bilirubin AST ALT Alkaline Phosphatase Total Protein Albumin Triglycerides Cholesterol LDL Cholesterol Direct VLDL Cholesterol HDL Cholesterol 04/24/18 04/24/18 04/24/18 07:10 07:10 12:26 WBC 10.5 RBC 6.68 H Hgb 14.3 Hct 44.4 MCV 66 L MCH 21.4 L MCHC 32.2 RDW 14.6 H Plt Count 271 Seg Neutrophils % 68.0 Lymphocytes % 21.0 Monocytes % 10.2 Eosinophils % 0.3 Basophils % 0.5 Absolute Neutrophils 7.2 Absolute Lymphocytes 2.2 Absolute Monocytes 1.1 Absolute Eosinophils 0.0 Absolute Basophils 0.1 Carbonic Acid HCO3/H2CO3 Ratio ABG pH ABG pCO2 ABG pO2 ABG HCO3 ABG O2 Saturation ABG Base Excess FiO2 Sodium 134.7 L 132.4 L Potassium 4.7 4.6 Chloride 102 101 Carbon Dioxide 22 19 L Anion Gap 11 12 BUN 15 14 Creatinine 0.73 0.63 Est GFR ( Amer) > 60 > 60 Est GFR (Non-Af Amer) > 60 > 60 Glucose 260 H 258 H Calcium 8.8 8.9 Total Bilirubin 2.1 H AST 48 ALT 29 Alkaline Phosphatase 102 Total Protein 6.2 L Albumin 3.3 L Triglycerides 213 H Cholesterol 162.26 LDL Cholesterol Direct 98 VLDL Cholesterol 42.6 H HDL Cholesterol 31 L Impressions: KUB X-Ray 04/22/18 13:59 IMPRESSION: NO RADIOGRAPHIC EVIDENCE FOR ACUTE ABDOMINAL DISEASE. Chest X-Ray 04/24/18 06:00 IMPRESSION: No acute cardiopulmonary findings. Assessment & Plan - Diagnosis (1) DKA (diabetic ketoacidoses) Qualifiers: Diabetes mellitus type: other specified (including PEÑA) Diabetes mellitus complication detail: without coma Qualified Code(s): E13.10 - Other specified diabetes mellitus with ketoacidosis without coma Is this a current diagnosis for this admission?: Yes Plan: Resolved. DKA is likely secondary to severely uncontrolled and undiagnosed diabetes mellitus. Patient is tolerating diet well. He was transitioned to levemir 15 u bid yesterday. Sugars are running high in the 300s. Will increase levemir to 17 u bid. Will also add 5 u TID of scheduled premeal coverage of Humalog. (2) Diabetes mellitus, new onset Is this a current diagnosis for this admission?: Yes Plan: Patient denies a previous diagnosis of diabetes. This is presumed to be type 2 diabetes mellitus. Patient likely has underlying undiagnosed diabetes mellitus in the past several months due to A1c being elevated at >14. Plan as #1. (3) Acute kidney injury Is this a current diagnosis for this admission?: Yes Plan: Resolved with Iv fluids. This was likely prerenal RANJAN from severe dehydration and DKA. Continue IV fluids. (4) High anion gap metabolic acidosis Is this a current diagnosis for this admission?: Yes Plan: Secondary to DKA. Resolved. (5) Acute diarrhea Is this a current diagnosis for this admission?: Yes Plan: Resolved. No episode of diarrhea since admission hence C. difficile testing was not sent. (6) BIMAL (obstructive sleep apnea) Is this a current diagnosis for this admission?: Yes Plan: Severe BIMAL. He does have low lying palate, large tongue with the uvula not visible on mouth opening. Continue BIPAP at night/sleep. Will follow-up on further pulm recommendations. - Time Time Spent with patient: 25-34 minutes
[2018-04-24 16:14] LABS: ANION GAP 10 (5-19); BLOOD UREA NITROGEN 14 mg/dL (7-20); CALCIUM 8.7 mg/dL (8.4-10.2); CARBON DIOXIDE 22 mmol/L (22-30); CHLORIDE 99 mmol/L (98-107); GLUCOSE 265 mg/dL (75-110); POTASSIUM 4.3 mmol/L (3.6-5.0)
[2018-04-24 19:30] LABS: ANION GAP 9 (5-19); BLOOD UREA NITROGEN 13 mg/dL (7-20); CALCIUM 8.6 mg/dL (8.4-10.2); CARBON DIOXIDE 23 mmol/L (22-30); CHLORIDE 99 mmol/L (98-107); GLUCOSE 289 mg/dL (75-110); POTASSIUM 4.1 mmol/L (3.6-5.0); SODIUM 130.8 mmol/L (137-145)
[2018-04-24 23:41] LABS: ANION GAP 12 (5-19); BLOOD UREA NITROGEN 12 mg/dL (7-20); CALCIUM 8.4 mg/dL (8.4-10.2); CARBON DIOXIDE 22 mmol/L (22-30); CHLORIDE 100 mmol/L (98-107); GLUCOSE 259 mg/dL (75-110); POTASSIUM 3.8 mmol/L (3.6-5.0); SODIUM 133.5 mmol/L (137-145)
[2018-04-25 03:38] LABS: ABSOLUTE BASOPHILS # (AUTO) 0.1 10^3/uL (0.0-0.2); ABSOLUTE EOSINOPHILS # (AUTO) 0.1 10^3/uL (0.0-0.6); ABSOLUTE LYMPHOCYTES (AUTO) 2.3 10^3/uL (0.5-4.7); ABSOLUTE NEUT (AUTO) 5.4 10^3/uL (1.7-8.2); BASOPHILS % (AUTO) 0.8 % (0-2); EOSINOPHILS % (AUTO) 0.7 % (0-6); HEMATOCRIT 43.4 % (37.9-51.0); HEMOGLOBIN 13.9 g/dL (13.5-17.0); MEAN CORPUSCULAR HEMOGLOBIN 21.2 pg (27.0-33.4); MEAN CORPUSCULAR HGB CONC 31.9 g/dL (32.0-36.0); MEAN CORPUSCULAR VOLUME 67 fl (80-97); MONOCYTES % (AUTO) 10.9 % (3-13); PLATELET COUNT 274 10^3/uL (150-450); RED BLOOD COUNT 6.52 10^6/uL (4.35-5.55); RED CELL DISTRIBUTION WIDTH 14.3 % (11.5-14.0); SEGMENTED NEUTROPHILS % (AUTO) 61.6 % (42-78); TOTAL CELLS COUNTED % (AUTO) 100 %; WHITE BLOOD COUNT 8.8 10^3/uL (4.0-10.5)
[2018-04-25 04:10] LABS: ANION GAP 9 (5-19); BLOOD UREA NITROGEN 11 mg/dL (7-20); CARBON DIOXIDE 26 mmol/L (22-30); CHLORIDE 100 mmol/L (98-107); GLUCOSE 232 mg/dL (75-110); POTASSIUM 4.2 mmol/L (3.6-5.0); SODIUM 134.9 mmol/L (137-145)
[2018-04-25] MEDS: NYSTATIN 500000 UNIT/5 ML UDCUP PO SCH ×4 (05:31→23:04)
[2018-04-25] MEDS: LANSOPRAZOLE 30 MG TAB.RAP.DR PO SCH ×2 (05:31→17:45)
[2018-04-25] MEDS: NORMAL SALINE 1000 ML 1,000 ML IV PRN ×3 (05:33→22:35)
[2018-04-25 06:44] LABS: ARTERIAL BLOOD BASE EXCESS -1.6 mmol/L; ARTERIAL BLOOD H2CO3 1.35 mmol/L (1.05-1.35); ARTERIAL BLOOD HCO3 24.1 mmol/L (20-24); ARTERIAL BLOOD O2 SATURATION 98.7 % (94-98); ARTERIAL BLOOD PCO2 44.7 mmHg (35-45); ARTERIAL BLOOD PH 7.35 (7.35-7.45); ARTERIAL BLOOD PO2 141.6 mmHg (80-100); ARTERIAL BLOOD TOTAL CO2 25.5 mmol/L (23-27)
[2018-04-25 06:45] LABS: ARTERIAL BLOOD FIO2 30%
[2018-04-25 07:15] LABS: ANION GAP 9 (5-19); BLOOD UREA NITROGEN 11 mg/dL (7-20); CALCIUM 8.8 mg/dL (8.4-10.2); CARBON DIOXIDE 24 mmol/L (22-30); CHLORIDE 102 mmol/L (98-107); GLUCOSE 238 mg/dL (75-110); POTASSIUM 4.1 mmol/L (3.6-5.0); SODIUM 135.1 mmol/L (137-145)
--- NOTE | 2018-04-25 09:04 | RADIOLOGY REPORT (SQ) ---
EXAM DESCRIPTION: CHEST SINGLE VIEW COMPLETED DATE/TIME: 04/25/2018 7:58 am REASON FOR STUDY: resp failure COMPARISON: 04/24/2018 EXAM PARAMETERS: NUMBER OF VIEWS: One view. TECHNIQUE: Single frontal radiographic view of the chest acquired. RADIATION DOSE: NA LIMITATIONS: None. FINDINGS: LUNGS AND PLEURA: No opacities, masses or pneumothorax. No pleural effusion. MEDIASTINUM AND HILAR STRUCTURES: No masses. Contour normal. HEART AND VASCULAR STRUCTURES: Heart normal in size. Normal vasculature. BONES: No acute findings. HARDWARE: None in the chest. OTHER: No other significant finding. IMPRESSION: NO ACUTE RADIOGRAPHIC FINDING IN THE CHEST. TECHNICAL DOCUMENTATION: JOB ID: [id number] [employer]- All Rights Reserved Reading location - IP/workstation name: [email or web address]
[2018-04-25] MEDS: INSULIN DETEMIR 100 UNIT/ML 3 ML PEN SUBCUT SCH ×2 (09:07→22:26)
[2018-04-25] MEDS: INSULIN LISPRO 100 UNIT/ML 3 ML VIAL SUBCUT SCH ×3 (09:07→17:46)
[2018-04-25] MEDS: INSULIN LISPRO 100 UNIT/ML 3 ML VIAL SUBCUT PRN ×4 (09:08→22:25)
[2018-04-25] MEDS: NYSTATIN TOPICAL POWDER 15 GM TP SCH ×2 (09:08→17:45)
[2018-04-25] MEDS: ENOXAPARIN SODIUM INJ 30 MG/0.3 ML DISP.SYRIN SUBCUT SCH (09:08)
--- NOTE | 2018-04-25 10:59 | PDOC PROGRESS REPORT ---
Subjective Progress Note for:: 04/25/18 Subjective:: 42-year-old male denies any significant past medical history except for sleep apnea using CPAP at home. Patient was admitted on 04/22/2018 with severe DKA anion gap of 38. DKA has resolved. Patient currently on long-acting insulin. No acute events overnight however patient says he cannot sleep due to thinking too much about his recently diagnosed diabetes. He states he has been having polydipsia polyuria and polyphagia for long time however he was not told that he has diabetes. History of obstructive sleep apnea on physical examination patient has a low- lying palate, large tongue which puts him at Mallampati stage IV Patient is a complaining of congestion but was able to tolerate BiPAP overnight. Patient had a good night sleep. Denies any fever, chills, nausea, vomiting, diarrhea, chest pain, shortness of breath, abdominal pain, constipation or any urinary symptoms. Reason For Visit: SEVERE DKA Physical Exam Vital Signs: Temp Pulse Resp BP Pulse Ox 97.6 F 84 16 145/77 H 100 04/25/18 03:28 04/25/18 07:00 04/25/18 03:58 04/25/18 03:28 04/25/18 03:28 Intake & Output 04/24/18 04/25/18 04/26/18 06:59 06:59 06:59 Intake Total 8828 5430 Output Total 3490 1301 Balance 5338 4129 Weight 148.2 kg 152.3 kg General appearance: PRESENT: no acute distress, obese, well-developed, well- nourished Head exam: PRESENT: atraumatic, normocephalic Eye exam: PRESENT: conjunctiva pink, EOMI, PERRLA. ABSENT: scleral icterus Ear exam: PRESENT: normal external ear exam Mouth exam: PRESENT: moist, tongue midline Neck exam: ABSENT: carotid bruit, JVD, lymphadenopathy, thyromegaly Respiratory exam: PRESENT: clear to auscultation muna. ABSENT: rales, rhonchi, wheezes Cardiovascular exam: PRESENT: RRR. ABSENT: diastolic murmur, rubs, systolic murmur Pulses: PRESENT: normal dorsalis pedis pul Vascular exam: PRESENT: normal capillary refill GI/Abdominal exam: PRESENT: normal bowel sounds, soft. ABSENT: distended, guarding, mass, organolmegaly, rebound, tenderness Rectal exam: PRESENT: deferred Extremities exam: PRESENT: full ROM. ABSENT: calf tenderness, clubbing, pedal edema Neurological exam: PRESENT: alert, awake, oriented to person, oriented to place , oriented to time, oriented to situation, CN II-XII grossly intact. ABSENT: motor sensory deficit Psychiatric exam: PRESENT: appropriate affect, normal mood. ABSENT: homicidal ideation, suicidal ideation Skin exam: PRESENT: dry, intact, warm. ABSENT: cyanosis, rash Results Laboratory Results: 04/25/18 03:18 04/25/18 06:51 04/24/18 04/24/18 04/24/18 12:26 15:25 19:05 WBC RBC Hgb Hct MCV MCH MCHC RDW Plt Count Seg Neutrophils % Lymphocytes % Monocytes % Eosinophils % Basophils % Absolute Neutrophils Absolute Lymphocytes Absolute Monocytes Absolute Eosinophils Absolute Basophils Carbonic Acid HCO3/H2CO3 Ratio ABG pH ABG pCO2 ABG pO2 ABG HCO3 ABG O2 Saturation ABG Base Excess FiO2 Sodium 132.4 L 131.0 L 130.8 L Potassium 4.6 4.3 4.1 Chloride 101 99 99 Carbon Dioxide 19 L 22 23 Anion Gap 12 10 9 BUN 14 14 13 Creatinine 0.63 0.65 0.68 Est GFR ( Amer) > 60 > 60 > 60 Est GFR (Non-Af Amer) > 60 > 60 > 60 Glucose 258 H 265 H 289 H Calcium 8.9 8.7 8.6 Magnesium 04/24/18 04/25/18 04/25/18 23:10 03:18 03:18 WBC 8.8 RBC 6.52 H Hgb 13.9 Hct 43.4 MCV 67 L MCH 21.2 L MCHC 31.9 L RDW 14.3 H Plt Count 274 Seg Neutrophils % 61.6 Lymphocytes % 26.0 Monocytes % 10.9 Eosinophils % 0.7 Basophils % 0.8 Absolute Neutrophils 5.4 Absolute Lymphocytes 2.3 Absolute Monocytes 1.0 Absolute Eosinophils 0.1 Absolute Basophils 0.1 Carbonic Acid HCO3/H2CO3 Ratio ABG pH ABG pCO2 ABG pO2 ABG HCO3 ABG O2 Saturation ABG Base Excess FiO2 Sodium 133.5 L 134.9 L Potassium 3.8 4.2 Chloride 100 100 Carbon Dioxide 22 26 Anion Gap 12 9 BUN 12 11 Creatinine 0.66 0.67 Est GFR ( Amer) > 60 > 60 Est GFR (Non-Af Amer) > 60 > 60 Glucose 259 H 232 H Calcium 8.4 9.0 Magnesium 2.4 H 04/25/18 04/25/18 06:30 06:51 WBC RBC Hgb Hct MCV MCH MCHC RDW Plt Count Seg Neutrophils % Lymphocytes % Monocytes % Eosinophils % Basophils % Absolute Neutrophils Absolute Lymphocytes Absolute Monocytes Absolute Eosinophils Absolute Basophils Carbonic Acid 1.35 HCO3/H2CO3 Ratio 17:1 ABG pH 7.35 ABG pCO2 44.7 ABG pO2 141.6 H ABG HCO3 24.1 H ABG O2 Saturation 98.7 H ABG Base Excess -1.6 FiO2 30% Sodium 135.1 L Potassium 4.1 Chloride 102 Carbon Dioxide 24 Anion Gap 9 BUN 11 Creatinine 0.58 Est GFR ( Amer) > 60 Est GFR (Non-Af Amer) > 60 Glucose 238 H Calcium 8.8 Magnesium Impressions: KUB X-Ray 04/22/18 13:59 IMPRESSION: NO RADIOGRAPHIC EVIDENCE FOR ACUTE ABDOMINAL DISEASE. Chest X-Ray 04/25/18 06:00 IMPRESSION: NO ACUTE RADIOGRAPHIC FINDING IN THE CHEST. Assessment & Plan - Diagnosis (1) BIMAL (obstructive sleep apnea) Is this a current diagnosis for this admission?: Yes Plan: On BiPAP at 20/8 still reporting sleep apnea's. Patient to have polysomnography as per pulmonology recommendation so he can be discharged either on BiPAP or trilogy. (2) DKA (diabetic ketoacidoses) Qualifiers: Diabetes mellitus type: other specified (including PEÑA) Diabetes mellitus complication detail: without coma Qualified Code(s): E13.10 - Other specified diabetes mellitus with ketoacidosis without coma Is this a current diagnosis for this admission?: Yes Plan: Resolved. Anion gap WNL. DKA most likely due to severely uncontrolled and undiagnosed diabetes. Patient is off of insulin drip. Tolerating p.o. diet. Increase Levemir to 19 units twice daily, increase pre-meal insulin to 8, continue sliding scale. Patient is very concerned about his newly diagnosed diabetes. He was extensively counseled about diabetes, its management and complication. Patient was advised to follow-up with his PCP after his discharge from hospital and also to log his blood sugar level at home and take it to his PCP so that his insulin dosage could be managed. Patient received diabetes education by nursing staff while in the hospital. Patient was also advised to follow-up with clerical administrator and PCP to find out if patient has diabetes type 2 or type I. (3) Acute kidney injury Is this a current diagnosis for this admission?: Yes Plan: Resolved. Possibly prerenal caused by severe dehydration and DKA. Follow-up with PCP and nephrology. Avoid nephrotoxic agents. Treat diabetes. (4) Diabetes mellitus, new onset Is this a current diagnosis for this admission?: Yes Plan: Denies any personal or family history of diabetes. However he states that he has been having polyphagia, polydipsia, polyuria for the last 2 years and was never told that he has diabetes. Hemoglobin A1c is more than 14% on admission. Blood glucose level and low 200s. Continue long and short-acting insulin. Adjust medications as needed. Goal of fasting blood sugar is around 120s. Patient is to follow-up with PCP for adjustment of his insulin dosage. She was extensively counseled about diabetes and its complication and its management. He was to follow-up with PCP with a log of his blood glucose level at home. (5) High anion gap metabolic acidosis Is this a current diagnosis for this admission?: Yes Plan: Secondary to DKA. Resolved. (6) Obesity Qualifiers: Obesity type: due to excess calories Body mass index: BMI 40.0-44.9 Is this a current diagnosis for this admission?: Yes Plan: Patient was counseled on diet and lifestyle modification. Continue diabetic diet. (7) Dyslipidemia Is this a current diagnosis for this admission?: Yes Plan: ASCVD score of 8.8%. Will start on high intensity statins. Diet and lifestyle modification.
[2018-04-25 11:52] LABS: ANION GAP 9 (5-19); BLOOD UREA NITROGEN 12 mg/dL (7-20); CALCIUM 8.8 mg/dL (8.4-10.2); CARBON DIOXIDE 23 mmol/L (22-30); CHLORIDE 100 mmol/L (98-107); GLUCOSE 247 mg/dL (75-110); POTASSIUM 4.6 mmol/L (3.6-5.0); SODIUM 132.3 mmol/L (137-145)
[2018-04-25] MEDS: FLUTICASONE NASAL SPRAY 50 MCG/SPRY 120 SPRAY/16 GM NASL SCH ×2 (12:20→22:31)
[2018-04-25] MEDS: ACETAMINOPHEN 325 MG TABLET PO PRN (12:20)
[2018-04-25] MEDS ORDERED: CETIRIZINE 5 MG TABLET PO ONE (13:00)
--- NOTE | 2018-04-25 14:53 | PDOC PROGRESS REPORT ---
Subjective Progress Note for:: 04/25/18 Subjective:: Better today Reason For Visit: SEVERE DKA Physical Exam Vital Signs: Temp Pulse Resp BP Pulse Ox 97.6 F 84 16 145/77 H 100 04/25/18 03:28 04/25/18 07:00 04/25/18 03:58 04/25/18 03:28 04/25/18 03:28 Intake & Output 04/24/18 04/25/18 04/26/18 06:59 06:59 06:59 Intake Total 8828 5430 1000 Output Total 3490 1301 Balance 5338 4129 1000 Weight 148.2 kg 152.3 kg General appearance: PRESENT: no acute distress, cooperative, disheveled, morbidly obese Head exam: PRESENT: atraumatic, normocephalic Eye exam: PRESENT: EOMI. ABSENT: nystagmus, scleral icterus Mouth exam: PRESENT: dry mucosa, neck supple, tongue midline Neck exam: ABSENT: carotid bruit, JVD, lymphadenopathy, thyromegaly, tracheal deviation, tracheostomy Respiratory exam: PRESENT: decreased breath sounds, prolonged expiratory phas, rhonchi, unlabored. ABSENT: retraction, stridor Cardiovascular exam: PRESENT: RRR, +S1, +S2 Pulses: PRESENT: normal radial pulses GI/Abdominal exam: PRESENT: soft. ABSENT: tenderness Extremities exam: PRESENT: pedal edema. ABSENT: calf tenderness, clubbing, joint swelling Musculoskeletal exam: ABSENT: deformity, dislocation Neurological exam: PRESENT: alert, awake Psychiatric exam: PRESENT: normal mood Skin exam: PRESENT: dry, warm Results Laboratory Results: 04/25/18 03:18 04/25/18 11:10 04/24/18 04/24/18 04/24/18 15:25 19:05 23:10 WBC RBC Hgb Hct MCV MCH MCHC RDW Plt Count Seg Neutrophils % Lymphocytes % Monocytes % Eosinophils % Basophils % Absolute Neutrophils Absolute Lymphocytes Absolute Monocytes Absolute Eosinophils Absolute Basophils Carbonic Acid HCO3/H2CO3 Ratio ABG pH ABG pCO2 ABG pO2 ABG HCO3 ABG O2 Saturation ABG Base Excess FiO2 Sodium 131.0 L 130.8 L 133.5 L Potassium 4.3 4.1 3.8 Chloride 99 99 100 Carbon Dioxide 22 23 22 Anion Gap 10 9 12 BUN 14 13 12 Creatinine 0.65 0.68 0.66 Est GFR ( Amer) > 60 > 60 > 60 Est GFR (Non-Af Amer) > 60 > 60 > 60 Glucose 265 H 289 H 259 H Calcium 8.7 8.6 8.4 Magnesium 04/25/18 04/25/18 04/25/18 03:18 03:18 06:30 WBC 8.8 RBC 6.52 H Hgb 13.9 Hct 43.4 MCV 67 L MCH 21.2 L MCHC 31.9 L RDW 14.3 H Plt Count 274 Seg Neutrophils % 61.6 Lymphocytes % 26.0 Monocytes % 10.9 Eosinophils % 0.7 Basophils % 0.8 Absolute Neutrophils 5.4 Absolute Lymphocytes 2.3 Absolute Monocytes 1.0 Absolute Eosinophils 0.1 Absolute Basophils 0.1 Carbonic Acid 1.35 HCO3/H2CO3 Ratio 17:1 ABG pH 7.35 ABG pCO2 44.7 ABG pO2 141.6 H ABG HCO3 24.1 H ABG O2 Saturation 98.7 H ABG Base Excess -1.6 FiO2 30% Sodium 134.9 L Potassium 4.2 Chloride 100 Carbon Dioxide 26 Anion Gap 9 BUN 11 Creatinine 0.67 Est GFR ( Amer) > 60 Est GFR (Non-Af Amer) > 60 Glucose 232 H Calcium 9.0 Magnesium 2.4 H 04/25/18 04/25/18 06:51 11:10 WBC RBC Hgb Hct MCV MCH MCHC RDW Plt Count Seg Neutrophils % Lymphocytes % Monocytes % Eosinophils % Basophils % Absolute Neutrophils Absolute Lymphocytes Absolute Monocytes Absolute Eosinophils Absolute Basophils Carbonic Acid HCO3/H2CO3 Ratio ABG pH ABG pCO2 ABG pO2 ABG HCO3 ABG O2 Saturation ABG Base Excess FiO2 Sodium 135.1 L 132.3 L Potassium 4.1 4.6 Chloride 102 100 Carbon Dioxide 24 23 Anion Gap 9 9 BUN 11 12 Creatinine 0.58 0.59 Est GFR ( Amer) > 60 > 60 Est GFR (Non-Af Amer) > 60 > 60 Glucose 238 H 247 H Calcium 8.8 8.8 Magnesium Impressions: KUB X-Ray 04/22/18 13:59 IMPRESSION: NO RADIOGRAPHIC EVIDENCE FOR ACUTE ABDOMINAL DISEASE. Chest X-Ray 04/25/18 06:00 IMPRESSION: NO ACUTE RADIOGRAPHIC FINDING IN THE CHEST. Assessment & Plan - Diagnosis (1) Obesity Qualifiers: Obesity type: due to excess calories Body mass index: BMI 40.0-44.9 Is this a current diagnosis for this admission?: Yes (2) DKA (diabetic ketoacidoses) Qualifiers: Diabetes mellitus type: other specified (including PEÑA) Diabetes mellitus complication detail: without coma Qualified Code(s): E13.10 - Other specified diabetes mellitus with ketoacidosis without coma Is this a current diagnosis for this admission?: Yes Plan: Currently not acidotic (3) BIMAL (obstructive sleep apnea) Is this a current diagnosis for this admission?: Yes Plan: Advised the [place] for his healthcare preapproval will be necessary before sleep study
[2018-04-25 16:07] LABS: ANION GAP 11 (5-19); BLOOD UREA NITROGEN 12 mg/dL (7-20); CARBON DIOXIDE 22 mmol/L (22-30); CHLORIDE 100 mmol/L (98-107); GLUCOSE 265 mg/dL (75-110); POTASSIUM 4.3 mmol/L (3.6-5.0); SODIUM 132.6 mmol/L (137-145)
[2018-04-25 19:50] LABS: ANION GAP 10 (5-19); BLOOD UREA NITROGEN 12 mg/dL (7-20); CALCIUM 8.8 mg/dL (8.4-10.2); CARBON DIOXIDE 23 mmol/L (22-30); CHLORIDE 98 mmol/L (98-107); GLUCOSE 251 mg/dL (75-110); POTASSIUM 4.5 mmol/L (3.6-5.0)
[2018-04-25] MEDS: ATORVASTATIN CALCIUM 40 MG TABLET PO SCH (22:15)
[2018-04-25 23:45] LABS: ANION GAP 9 (5-19); BLOOD UREA NITROGEN 11 mg/dL (7-20); CARBON DIOXIDE 23 mmol/L (22-30); CHLORIDE 101 mmol/L (98-107); GLUCOSE 201 mg/dL (75-110); POTASSIUM 4.2 mmol/L (3.6-5.0); SODIUM 132.9 mmol/L (137-145)
[2018-04-26 04:40] LABS: ABSOLUTE BASOPHILS # (AUTO) 0.1 10^3/uL (0.0-0.2); ABSOLUTE EOSINOPHILS # (AUTO) 0.1 10^3/uL (0.0-0.6); ABSOLUTE LYMPHOCYTES (AUTO) 2.1 10^3/uL (0.5-4.7); ABSOLUTE NEUT (AUTO) 5.6 10^3/uL (1.7-8.2); BASOPHILS % (AUTO) 0.8 % (0-2); EOSINOPHILS % (AUTO) 1.1 % (0-6); HEMATOCRIT 39.4 % (37.9-51.0); HEMOGLOBIN 12.7 g/dL (13.5-17.0); LYMPHOCYTES % (AUTO) 24.1 % (13-45); MEAN CORPUSCULAR HEMOGLOBIN 21.4 pg (27.0-33.4); MEAN CORPUSCULAR HGB CONC 32.1 g/dL (32.0-36.0); MEAN CORPUSCULAR VOLUME 67 fl (80-97); MONOCYTES % (AUTO) 10.9 % (3-13); PLATELET COUNT 283 10^3/uL (150-450); RED BLOOD COUNT 5.93 10^6/uL (4.35-5.55); RED CELL DISTRIBUTION WIDTH 14.1 % (11.5-14.0); SEGMENTED NEUTROPHILS % (AUTO) 63.1 % (42-78); TOTAL CELLS COUNTED % (AUTO) 100 %; WHITE BLOOD COUNT 8.9 10^3/uL (4.0-10.5)
[2018-04-26 05:08] LABS: ALANINE AMINOTRANSFERASE 39 U/L (21-72); ALBUMIN 3.5 g/dL (3.5-5.0); ALKALINE PHOSPHATASE 115 U/L (38-126); ANION GAP 10 (5-19); ASPARTATE AMINO TRANSFERASE 58 U/L (17-59); BILIRUBIN,DIRECT 0.9 mg/dL (0.0-0.4); BILIRUBIN,TOTAL 2.5 mg/dL (0.2-1.3); BLOOD UREA NITROGEN 11 mg/dL (7-20); CALCIUM 9.1 mg/dL (8.4-10.2); CARBON DIOXIDE 26 mmol/L (22-30); CHLORIDE 101 mmol/L (98-107); GLUCOSE 222 mg/dL (75-110); POTASSIUM 4.3 mmol/L (3.6-5.0); SODIUM 136.5 mmol/L (137-145); TOTAL PROTEIN 6.4 g/dL (6.3-8.2)
[2018-04-26] MEDS: NYSTATIN 500000 UNIT/5 ML UDCUP PO SCH ×4 (05:30→23:19)
[2018-04-26] MEDS: NORMAL SALINE 1000 ML 1,000 ML IV PRN (05:31)
[2018-04-26] MEDS: LANSOPRAZOLE 30 MG TAB.RAP.DR PO SCH ×2 (05:31→17:11)
[2018-04-26] MEDS: INSULIN LISPRO 100 UNIT/ML 3 ML VIAL SUBCUT PRN ×4 (08:40→22:16)
[2018-04-26] MEDS: INSULIN LISPRO 100 UNIT/ML 3 ML VIAL SUBCUT SCH ×3 (08:46→17:12)
[2018-04-26] MEDS: ENOXAPARIN SODIUM INJ 30 MG/0.3 ML DISP.SYRIN SUBCUT SCH (10:02)
[2018-04-26] MEDS: FLUTICASONE NASAL SPRAY 50 MCG/SPRY 120 SPRAY/16 GM NASL SCH ×2 (10:03→22:14)
[2018-04-26] MEDS: INSULIN DETEMIR 100 UNIT/ML 3 ML PEN SUBCUT SCH (10:04)
[2018-04-26] MEDS: CETIRIZINE 5 MG TABLET PO SCH (10:05)
[2018-04-26] MEDS: NYSTATIN TOPICAL POWDER 15 GM TP SCH ×2 (10:09→17:21)
--- NOTE | 2018-04-26 13:26 | PDOC PROGRESS REPORT ---
Subjective Progress Note for:: 04/26/18 Subjective:: 42-year-old male denies any significant past medical history except for sleep apnea using CPAP at home. Patient was admitted on 04/22/2018 with severe DKA anion gap of 38. DKA has resolved. Patient currently on long-acting insulin. No acute events overnight however patient says he cannot sleep due to thinking too much about his recently diagnosed diabetes. He states he has been having polydipsia polyuria and polyphagia for long time however he was not told that he has diabetes. History of obstructive sleep apnea on physical examination patient has a low- lying palate, large tongue which puts him at Mallampati stage IV Patient is a complaining of congestion but was able to tolerate BiPAP overnight. Patient could not get good night sleep due to thinking about his medical condition. Denies any fever, chills, nausea, vomiting, diarrhea, chest pain, shortness of breath, abdominal pain, constipation or any urinary symptoms. Reason For Visit: SEVERE DKA Physical Exam Vital Signs: Temp Pulse Resp BP Pulse Ox 97.7 F 95 16 134/87 H 99 04/26/18 07:36 04/26/18 07:36 04/26/18 07:36 04/26/18 07:36 04/26/18 07:36 Intake & Output 04/25/18 04/26/18 04/27/18 06:59 06:59 06:59 Intake Total 5430 4331 591 Output Total 1301 1100 Balance 4129 3231 591 Weight 152.3 kg 154.8 kg General appearance: PRESENT: no acute distress, well-developed, well-nourished Head exam: PRESENT: atraumatic, normocephalic Eye exam: PRESENT: conjunctiva pink, EOMI, PERRLA. ABSENT: scleral icterus Ear exam: PRESENT: normal external ear exam Mouth exam: PRESENT: moist, tongue midline Neck exam: ABSENT: carotid bruit, JVD, lymphadenopathy, thyromegaly Respiratory exam: PRESENT: clear to auscultation muna. ABSENT: rales, rhonchi, wheezes Cardiovascular exam: PRESENT: RRR. ABSENT: diastolic murmur, rubs, systolic murmur Pulses: PRESENT: normal dorsalis pedis pul Vascular exam: PRESENT: normal capillary refill GI/Abdominal exam: PRESENT: normal bowel sounds, soft. ABSENT: distended, guarding, mass, organolmegaly, rebound, tenderness Rectal exam: PRESENT: deferred Extremities exam: PRESENT: full ROM. ABSENT: calf tenderness, clubbing, pedal edema Neurological exam: PRESENT: alert, awake, oriented to person, oriented to place , oriented to time, oriented to situation, CN II-XII grossly intact. ABSENT: motor sensory deficit Psychiatric exam: PRESENT: appropriate affect, normal mood. ABSENT: homicidal ideation, suicidal ideation Skin exam: PRESENT: dry, intact, warm. ABSENT: cyanosis, rash Results Laboratory Results: 04/26/18 04:05 04/26/18 04:05 04/25/18 04/25/18 04/25/18 15:29 19:15 23:12 WBC RBC Hgb Hct MCV MCH MCHC RDW Plt Count Seg Neutrophils % Lymphocytes % Monocytes % Eosinophils % Basophils % Absolute Neutrophils Absolute Lymphocytes Absolute Monocytes Absolute Eosinophils Absolute Basophils Sodium 132.6 L 131.0 L 132.9 L Potassium 4.3 4.5 4.2 Chloride 100 98 101 Carbon Dioxide 22 23 23 Anion Gap 11 10 9 BUN 12 12 11 Creatinine 0.72 0.66 0.67 Est GFR ( Amer) > 60 > 60 > 60 Est GFR (Non-Af Amer) > 60 > 60 > 60 Glucose 265 H 251 H 201 H Calcium 9.0 8.8 9.0 Total Bilirubin AST ALT Alkaline Phosphatase Total Protein Albumin 04/26/18 04/26/18 04:05 04:05 WBC 8.9 RBC 5.93 H Hgb 12.7 L Hct 39.4 MCV 67 L MCH 21.4 L MCHC 32.1 RDW 14.1 H Plt Count 283 Seg Neutrophils % 63.1 Lymphocytes % 24.1 Monocytes % 10.9 Eosinophils % 1.1 Basophils % 0.8 Absolute Neutrophils 5.6 Absolute Lymphocytes 2.1 Absolute Monocytes 1.0 Absolute Eosinophils 0.1 Absolute Basophils 0.1 Sodium 136.5 L Potassium 4.3 Chloride 101 Carbon Dioxide 26 Anion Gap 10 BUN 11 Creatinine 0.62 Est GFR ( Amer) > 60 Est GFR (Non-Af Amer) > 60 Glucose 222 H Calcium 9.1 Total Bilirubin 2.5 H AST 58 ALT 39 Alkaline Phosphatase 115 Total Protein 6.4 Albumin 3.5 04/23/18 08:37 Throat Throat Culture - Final NORMAL MIRIAN Impressions: KUB X-Ray 04/22/18 13:59 IMPRESSION: NO RADIOGRAPHIC EVIDENCE FOR ACUTE ABDOMINAL DISEASE. Chest X-Ray 04/25/18 06:00 IMPRESSION: NO ACUTE RADIOGRAPHIC FINDING IN THE CHEST. Assessment & Plan - Diagnosis (1) BIMAL (obstructive sleep apnea) Is this a current diagnosis for this admission?: Yes Plan: On BiPAP at 20/8 still reporting sleep apnea's. Pulmonary on board. Recommendation is for patient to have a sleep study on the day of discharge, but unfortunately patient is a [facility] and to arrange for a sleep study on the day of discharge patient needs preauthorization. Will contact to see if case patient could be transferred to [place] where he could have his sleep study and possibly be discharged on BiPAP or trilogy. At the meantime we will get nocturnal pulse ox, bedside PFT to see if patient gets get qualified to be discharged on a BiPAP. (2) DKA (diabetic ketoacidoses) Qualifiers: Diabetes mellitus type: other specified (including PEÑA) Diabetes mellitus complication detail: without coma Qualified Code(s): E13.10 - Other specified diabetes mellitus with ketoacidosis without coma Is this a current diagnosis for this admission?: Yes Plan: Resolved. Anion gap WNL. DKA most likely due to severely uncontrolled and undiagnosed diabetes. Patient is off of insulin drip. Tolerating p.o. diet. Increase Levemir to 19 units twice daily, increase pre-meal insulin to 8, continue sliding scale. Patient is very concerned about his newly diagnosed diabetes. He was extensively counseled about diabetes, its management and complication. Patient was advised to follow-up with his PCP after his discharge from hospital and also to log his blood sugar level at home and take it to his PCP so that his insulin dosage could be managed. Patient received diabetes education by nursing staff while in the hospital. Patient was also advised to follow-up with sql data architect and PCP to find out if patient has diabetes type 2 or type I. (3) Acute kidney injury Is this a current diagnosis for this admission?: Yes Plan: Resolved. Possibly prerenal caused by severe dehydration and DKA. Follow-up with PCP and nephrology. Avoid nephrotoxic agents. Treat diabetes. (4) Diabetes mellitus, new onset Is this a current diagnosis for this admission?: Yes Plan: Denies any personal or family history of diabetes. However he states that he has been having polyphagia, polydipsia, polyuria for the last 2 years and was never told that he has diabetes. Hemoglobin A1c is more than 14% on admission. Blood glucose level and low 200s. Increase long-acting and pre-meal insulin. Adjust medications as needed. Goal of fasting blood sugar is around 120s. Patient is to follow-up with PCP for adjustment of his insulin dosage. He was extensively counseled about diabetes and its complication and its management. He was to follow-up with PCP with a log of his blood glucose level at home. (5) High anion gap metabolic acidosis Is this a current diagnosis for this admission?: Yes Plan: Secondary to DKA. Resolved. (6) Obesity Qualifiers: Obesity type: due to excess calories Body mass index: BMI 40.0-44.9 Is this a current diagnosis for this admission?: Yes Plan: Patient was counseled on diet and lifestyle modification. Continue diabetic diet. (7) Dyslipidemia Is this a current diagnosis for this admission?: Yes Plan: ASCVD score of 8.8%. Will start on high intensity statins. Diet and lifestyle modification. (8) Oral candidiasis Is this a current diagnosis for this admission?: Yes Plan: Secondary to uncontrolled diabetes. Improving. Continue oral nystatin. Patient has been complaining of right facial pain will get a CT of the face rule out any possible mucormycosis patient has severe uncontrolled diabetes presenting with DKA.
[2018-04-26] MEDS ORDERED: GABAPENTIN 300 MG CAPSULE PO SCH (14:00)
--- NOTE | 2018-04-26 14:19 | PDOC PROGRESS REPORT ---
Subjective Progress Note for:: 04/26/18 Subjective:: Better today Reason For Visit: SEVERE DKA Physical Exam Vital Signs: Temp Pulse Resp BP Pulse Ox 97.5 F 89 29 H 135/94 H 100 04/26/18 04:09 04/26/18 04:09 04/26/18 04:11 04/26/18 04:09 04/26/18 04:09 Intake & Output 04/25/18 04/26/18 04/27/18 06:59 06:59 06:59 Intake Total 5430 4331 Output Total 1301 1100 Balance 4129 3231 Weight 152.3 kg 154.8 kg General appearance: PRESENT: no acute distress, cooperative, disheveled, morbidly obese Head exam: PRESENT: atraumatic, normocephalic Eye exam: PRESENT: conjunctiva pale, EOMI. ABSENT: nystagmus Mouth exam: PRESENT: dry mucosa, neck supple, tongue midline Neck exam: ABSENT: carotid bruit, JVD, lymphadenopathy, thyromegaly, tracheal deviation, tracheostomy Respiratory exam: PRESENT: decreased breath sounds, prolonged expiratory phas, rhonchi, unlabored. ABSENT: rales, retraction, stridor Cardiovascular exam: PRESENT: RRR, +S1, +S2 Pulses: PRESENT: normal radial pulses GI/Abdominal exam: PRESENT: soft. ABSENT: tenderness Extremities exam: ABSENT: calf tenderness, clubbing, joint swelling Musculoskeletal exam: PRESENT: ambulatory. ABSENT: deformity, dislocation Neurological exam: PRESENT: alert, awake Psychiatric exam: PRESENT: normal mood Skin exam: PRESENT: dry, warm Results Laboratory Results: 04/26/18 04:05 04/26/18 04:05 04/25/18 04/25/18 04/25/18 11:10 15:29 19:15 WBC RBC Hgb Hct MCV MCH MCHC RDW Plt Count Seg Neutrophils % Lymphocytes % Monocytes % Eosinophils % Basophils % Absolute Neutrophils Absolute Lymphocytes Absolute Monocytes Absolute Eosinophils Absolute Basophils Sodium 132.3 L 132.6 L 131.0 L Potassium 4.6 4.3 4.5 Chloride 100 100 98 Carbon Dioxide 23 22 23 Anion Gap 9 11 10 BUN 12 12 12 Creatinine 0.59 0.72 0.66 Est GFR ( Amer) > 60 > 60 > 60 Est GFR (Non-Af Amer) > 60 > 60 > 60 Glucose 247 H 265 H 251 H Calcium 8.8 9.0 8.8 Total Bilirubin AST ALT Alkaline Phosphatase Total Protein Albumin 04/25/18 04/26/18 04/26/18 23:12 04:05 04:05 WBC 8.9 RBC 5.93 H Hgb 12.7 L Hct 39.4 MCV 67 L MCH 21.4 L MCHC 32.1 RDW 14.1 H Plt Count 283 Seg Neutrophils % 63.1 Lymphocytes % 24.1 Monocytes % 10.9 Eosinophils % 1.1 Basophils % 0.8 Absolute Neutrophils 5.6 Absolute Lymphocytes 2.1 Absolute Monocytes 1.0 Absolute Eosinophils 0.1 Absolute Basophils 0.1 Sodium 132.9 L 136.5 L Potassium 4.2 4.3 Chloride 101 101 Carbon Dioxide 23 26 Anion Gap 9 10 BUN 11 11 Creatinine 0.67 0.62 Est GFR ( Amer) > 60 > 60 Est GFR (Non-Af Amer) > 60 > 60 Glucose 201 H 222 H Calcium 9.0 9.1 Total Bilirubin 2.5 H AST 58 ALT 39 Alkaline Phosphatase 115 Total Protein 6.4 Albumin 3.5 Impressions: KUB X-Ray 04/22/18 13:59 IMPRESSION: NO RADIOGRAPHIC EVIDENCE FOR ACUTE ABDOMINAL DISEASE. Chest X-Ray 04/25/18 06:00 IMPRESSION: NO ACUTE RADIOGRAPHIC FINDING IN THE CHEST. Assessment & Plan - Diagnosis (1) Obesity Qualifiers: Obesity type: due to excess calories Body mass index: BMI 40.0-44.9 Is this a current diagnosis for this admission?: Yes (2) DKA (diabetic ketoacidoses) Qualifiers: Diabetes mellitus type: other specified (including PEÑA) Diabetes mellitus complication detail: without coma Qualified Code(s): E13.10 - Other specified diabetes mellitus with ketoacidosis without coma Is this a current diagnosis for this admission?: Yes Plan: Currently not acidotic (3) BIMAL (obstructive sleep apnea) Is this a current diagnosis for this admission?: Yes Plan: Advised the [place] for his healthcare preapproval will be necessary before sleep study (4) Elevated bilirubin Is this a current diagnosis for this admission?: Yes
--- NOTE | 2018-04-26 14:51 | Pulmonary Function Test ---
Pulmonary Function Test Date of Procedure:: 04/26/18 INDICATION:: Dyspnea Referring Provider: Dr. Armin Solano - Report Spirometry: FVC 3.63 L 67% FEV1 3.13 L 71% FEV1/FVC % 72 predicted 86 FEF 25-75% -4.45 L 98% Impression: No obstructive ventilatory defect. Restrictive ventilatory defect is inferred but cannot be based solely on the diagnosis of spirometry alone if clinically indicated complete pulmonary function tests would be warranted
[2018-04-26] MEDS ORDERED: INSULIN DETEMIR 100 UNIT/ML 3 ML PEN SUBCUT SCH (22:00)
[2018-04-26] MEDS: ATORVASTATIN CALCIUM 40 MG TABLET PO SCH (22:14)
--- NOTE | 2018-04-26 23:17 | RADIOLOGY REPORT (SQ) ---
EXAM DESCRIPTION: CT MAXILLOFACIAL WITH IV CONTRAST COMPLETED DATE/TME: 04/26/2018 13:18 CLINICAL HISTORY: 43 years, Male, Right-sided facial pain. Rule out mucormycosis COMPARISON: None. TECHNIQUE: CT of the facial bones and paranasal sinuses was done, without intravenous contrast in orthogonal planes Images stored on PACS. All CT scanners at this facility use dose modulation, iterative reconstruction, and/or weight based dosing when appropriate to reduce radiation dose to as low as reasonably achievable (ALARA). [facility]: Dose Right [facility]: CareDose [facility]: Dose Right [facility]: Teradose 4D [facility]: [employer] LIMITATIONS: None. FINDINGS: There is no mucoperiosteal thickening or air-fluid levels in the paranasal sinuses. The mastoid air cells are unremarkable. The bilateral ostiomeatal complexes are widely patent. There is no turbinate hypertrophy. There is no visualization of any soft tissue abscesses in the evaluated portions of the facial bones. The bilateral parotid glands and the bilateral submandibular glands are unremarkable. There is no pathological lymphadenopathy. The bilateral temporomandibular articulation is intact. The visualized portions of the cervical spine are unremarkable. The oropharyngeal airway and the bilateral tonsils are unremarkable IMPRESSION: Unremarkable CT of the facial bones and the paranasal sinuses TECHNICAL DOCUMENTATION: Quality ID # 436: Final reports with documentation of one or more dose reduction techniques (e.g., Automated exposure control, adjustment of the mA and/or kV according to patient size, use of iterative reconstruction technique) 2010 [employer]- All Rights Reserved
[2018-04-27] MEDS: NORMAL SALINE 1000 ML 1,000 ML IV PRN (01:04)
[2018-04-27 05:08] LABS: ABSOLUTE BASOPHILS # (AUTO) 0.1 10^3/uL (0.0-0.2); ABSOLUTE EOSINOPHILS # (AUTO) 0.1 10^3/uL (0.0-0.6); ABSOLUTE MONOCYTES (AUTO) 0.9 10^3/uL (0.1-1.4); ABSOLUTE NEUT (AUTO) 5.5 10^3/uL (1.7-8.2); BASOPHILS % (AUTO) 0.6 % (0-2); EOSINOPHILS % (AUTO) 1.4 % (0-6); HEMATOCRIT 36.6 % (37.9-51.0); HEMOGLOBIN 11.7 g/dL (13.5-17.0); LYMPHOCYTES % (AUTO) 23.1 % (13-45); MEAN CORPUSCULAR HEMOGLOBIN 21.5 pg (27.0-33.4); MEAN CORPUSCULAR HGB CONC 31.9 g/dL (32.0-36.0); MEAN CORPUSCULAR VOLUME 67 fl (80-97); MONOCYTES % (AUTO) 10.6 % (3-13); PLATELET COUNT 305 10^3/uL (150-450); RED BLOOD COUNT 5.44 10^6/uL (4.35-5.55); RED CELL DISTRIBUTION WIDTH 13.9 % (11.5-14.0); SEGMENTED NEUTROPHILS % (AUTO) 64.3 % (42-78); TOTAL CELLS COUNTED % (AUTO) 100 %; WHITE BLOOD COUNT 8.5 10^3/uL (4.0-10.5)
[2018-04-27 05:38] LABS: ALANINE AMINOTRANSFERASE 53 U/L (21-72); ALBUMIN 3.2 g/dL (3.5-5.0); ALKALINE PHOSPHATASE 111 U/L (38-126); ANION GAP 8 (5-19); ASPARTATE AMINO TRANSFERASE 58 U/L (17-59); BILIRUBIN,DIRECT 0.6 mg/dL (0.0-0.4); BILIRUBIN,TOTAL 2.5 mg/dL (0.2-1.3); BLOOD UREA NITROGEN 10 mg/dL (7-20); CALCIUM 9.2 mg/dL (8.4-10.2); CARBON DIOXIDE 26 mmol/L (22-30); CHLORIDE 104 mmol/L (98-107); GLUCOSE 212 mg/dL (75-110); POTASSIUM 4.3 mmol/L (3.6-5.0); SODIUM 138.4 mmol/L (137-145)
[2018-04-27] MEDS: NYSTATIN 500000 UNIT/5 ML UDCUP PO SCH ×3 (06:33→17:23)
[2018-04-27] MEDS: LANSOPRAZOLE 30 MG TAB.RAP.DR PO SCH ×2 (06:33→17:14)
[2018-04-27] MEDS: INSULIN LISPRO 100 UNIT/ML 3 ML VIAL SUBCUT SCH ×3 (07:57→17:14)
[2018-04-27] MEDS: INSULIN LISPRO 100 UNIT/ML 3 ML VIAL SUBCUT PRN ×4 (07:57→21:49)
[2018-04-27] MEDS ORDERED: INSULIN DETEMIR 100 UNIT/ML 3 ML PEN SUBCUT SCH (09:00)
--- NOTE | 2018-04-27 09:08 | PDOC PROGRESS REPORT ---
Subjective Progress Note for:: 04/27/18 Subjective:: 42-year-old male denies any significant past medical history except for sleep apnea using CPAP at home. Patient was admitted on 04/22/2018 with severe DKA anion gap of 38. He states he has been having polydipsia polyuria and polyphagia for long time however he was not told that he has diabetes. History of obstructive sleep apnea on physical examination patient has a low-lying palate, large tongue which puts him at Mallampati stage IV DKA has resolved. No acute events overnight however patient says he cannot sleep due to thinking too much about his recently diagnosed diabetes. Was able to tolerate BiPAP overnight. Patient could not get good night sleep due to thinking about his medical condition. Denies any fever, chills, nausea, vomiting, diarrhea, chest pain, shortness of breath, abdominal pain, constipation or any urinary symptoms. Reason For Visit: SEVERE DKA Physical Exam Vital Signs: Temp Pulse Resp BP Pulse Ox 97.6 F 89 17 136/86 H 99 04/27/18 03:11 04/27/18 07:00 04/27/18 04:15 04/27/18 03:11 04/27/18 04:15 Pulse Oximeter Nocturnal Start: 04/26/18 08: 34 Freq: Q Status: Active Document 04/26/18 22:30 LRO (Rec: 04/27/18 03:08 LRO [id number]) Nocturnal Pulse Oximetry Equipment Usage Initial Set Up Nocturnal Spo2 Charge Charge Now O2 Sat by Pulse Oximetry (92-100) 96 Continuous Pulse Oximeter Set Up Yes Continuous SpO2 Machine # 8 Intake & Output 04/26/18 04/27/18 04/28/18 06:59 06:59 06:59 Intake Total 4331 3391 Output Total 1100 Balance 3231 3391 Weight 154.8 kg 155.5 kg General appearance: PRESENT: no acute distress, well-developed, well-nourished Head exam: PRESENT: atraumatic, normocephalic Eye exam: PRESENT: conjunctiva pink, EOMI, PERRLA. ABSENT: scleral icterus Ear exam: PRESENT: normal external ear exam Mouth exam: PRESENT: moist, tongue midline Neck exam: ABSENT: carotid bruit, JVD, lymphadenopathy, thyromegaly Respiratory exam: PRESENT: clear to auscultation muna. ABSENT: rales, rhonchi, wheezes Cardiovascular exam: PRESENT: RRR. ABSENT: diastolic murmur, rubs, systolic murmur Pulses: PRESENT: normal dorsalis pedis pul Vascular exam: PRESENT: normal capillary refill GI/Abdominal exam: PRESENT: normal bowel sounds, soft. ABSENT: distended, guarding, mass, organolmegaly, rebound, tenderness Rectal exam: PRESENT: deferred Extremities exam: PRESENT: full ROM. ABSENT: calf tenderness, clubbing, pedal edema Neurological exam: PRESENT: alert, awake, oriented to person, oriented to place , oriented to time, oriented to situation, CN II-XII grossly intact. ABSENT: motor sensory deficit Psychiatric exam: PRESENT: appropriate affect, normal mood. ABSENT: homicidal ideation, suicidal ideation Skin exam: PRESENT: dry, intact, warm. ABSENT: cyanosis, rash Results Laboratory Results: 04/27/18 04:52 04/27/18 04:52 04/27/18 04/27/18 04:52 04:52 WBC 8.5 RBC 5.44 Hgb 11.7 L Hct 36.6 L MCV 67 L MCH 21.5 L MCHC 31.9 L RDW 13.9 Plt Count 305 Seg Neutrophils % 64.3 Lymphocytes % 23.1 Monocytes % 10.6 Eosinophils % 1.4 Basophils % 0.6 Absolute Neutrophils 5.5 Absolute Lymphocytes 2.0 Absolute Monocytes 0.9 Absolute Eosinophils 0.1 Absolute Basophils 0.1 Sodium 138.4 Potassium 4.3 Chloride 104 Carbon Dioxide 26 Anion Gap 8 BUN 10 Creatinine 0.57 Est GFR ( Amer) > 60 Est GFR (Non-Af Amer) > 60 Glucose 212 H Calcium 9.2 Total Bilirubin 2.5 H AST 58 ALT 53 Alkaline Phosphatase 111 Total Protein 6.0 L Albumin 3.2 L 04/23/18 08:37 Throat Throat Culture - Final NORMAL MIRIAN Impressions: KUB X-Ray 04/22/18 13:59 IMPRESSION: NO RADIOGRAPHIC EVIDENCE FOR ACUTE ABDOMINAL DISEASE. Chest X-Ray 04/25/18 06:00 IMPRESSION: NO ACUTE RADIOGRAPHIC FINDING IN THE CHEST. Facial Bones CT 04/26/18 13:18 IMPRESSION: Unremarkable CT of the facial bones and the paranasal sinuses TECHNICAL DOCUMENTATION: Quality ID # 436: Final reports with documentation of one or more dose reduction techniques (e.g., Automated exposure control, adjustment of the mA and/or kV according to patient size, use of iterative reconstruction technique) 2010 [employer]- All Rights Reserved Assessment & Plan - Diagnosis (1) BIMAL (obstructive sleep apnea) Is this a current diagnosis for this admission?: Yes Plan: On BiPAP at 20/8 still reporting sleep apnea's. Pulmonary on board. Recommendation is for patient to have a sleep study on the day of discharge, but unfortunately [facility] and to arrange for a sleep study on the day of discharge patient needs preauthorization. NH has been contacted to see if case patient could be transferred to NH where he could have his sleep study and possibly be discharged on BiPAP or trilogy. At the meantime we will get nocturnal pulse ox, bedside PFT to see if patient gets get qualified to be discharged on a BiPAP. Had nocturnal pulse ox and PFT. Pending pulmonology recommendation. (2) DKA (diabetic ketoacidoses) Qualifiers: Diabetes mellitus type: other specified (including PEÑA) Diabetes mellitus complication detail: without coma Qualified Code(s): E13.10 - Other specified diabetes mellitus with ketoacidosis without coma Is this a current diagnosis for this admission?: Yes Plan: Resolved. Anion gap WNL. DKA most likely due to severely uncontrolled and undiagnosed diabetes. Patient is off of insulin drip. Tolerating p.o. diet. Increase Levemir to 19 units twice daily, increase pre-meal insulin to 8, continue sliding scale. Patient is very concerned about his newly diagnosed diabetes. He was extensively counseled about diabetes, its management and complication. Patient was advised to follow-up with his PCP after his discharge from hospital and also to log his blood sugar level at home and take it to his PCP so that his insulin dosage could be managed. Patient received diabetes education by nursing staff while in the hospital. Patient was also advised to follow-up with cyber systems operations specialist and PCP to find out if patient has diabetes type 2 or type I. (3) Acute kidney injury Is this a current diagnosis for this admission?: Yes Plan: Resolved. Possibly prerenal caused by severe dehydration and DKA. Follow-up with PCP and nephrology. Avoid nephrotoxic agents. Treat diabetes. (4) Diabetes mellitus, new onset Is this a current diagnosis for this admission?: Yes Plan: Denies any personal or family history of diabetes. However he states that he has been having polyphagia, polydipsia, polyuria for the last 2 years and was never told that he has diabetes. Hemoglobin A1c is more than 14% on admission. Blood glucose level and low 200s. Levemir 85 units. NovoLog 15 minutes q. before meals. Continue sliding scale. Goal of fasting blood sugar is around 120s. Patient is to follow-up with PCP for adjustment of his insulin dosage. He was extensively counseled about diabetes and its complication and its management. He was to follow-up with PCP with a log of his blood glucose level at home. (5) High anion gap metabolic acidosis Is this a current diagnosis for this admission?: Yes Plan: Secondary to DKA. Resolved. (6) Obesity Qualifiers: Obesity type: due to excess calories Body mass index: BMI 40.0-44.9 Is this a current diagnosis for this admission?: Yes Plan: Patient was counseled on diet and lifestyle modification. Patient was counseled about lifestyle modification. (7) Dyslipidemia Is this a current diagnosis for this admission?: Yes Plan: ASCVD score of 8.8%. Will start on high intensity statins. Diet and lifestyle modification. (8) Oral candidiasis Is this a current diagnosis for this admission?: Yes Plan: Improving. Secondary to uncontrolled diabetes. Continue oral nystatin. Patient has been complaining of right facial she which is also improving. Concern was for possible mucormycosis. CT face was negative.
[2018-04-27] MEDS: NYSTATIN TOPICAL POWDER 15 GM TP SCH ×2 (10:29→17:17)
[2018-04-27] MEDS: FLUTICASONE NASAL SPRAY 50 MCG/SPRY 120 SPRAY/16 GM NASL SCH ×2 (10:30→21:46)
[2018-04-27] MEDS: ENOXAPARIN SODIUM INJ 30 MG/0.3 ML DISP.SYRIN SUBCUT SCH (10:30)
[2018-04-27] MEDS: CETIRIZINE 5 MG TABLET PO SCH (10:31)
[2018-04-27] MEDS: LISINOPRIL 5 MG TABLET PO SCH (10:31)
--- NOTE | 2018-04-27 13:24 | PDOC PROGRESS REPORT ---
Subjective Progress Note for:: 04/27/18 Subjective:: Occasional episodes of shortness of breath Reason For Visit: SEVERE DKA Physical Exam Vital Signs: Temp Pulse Resp BP Pulse Ox 98.7 F 91 16 137/86 H 100 04/27/18 11:20 04/27/18 11:20 04/27/18 11:20 04/27/18 11:20 04/27/18 11:20 Pulse Oximeter Nocturnal Start: 04/26/18 08: 34 Freq: Q Status: Active Document 04/26/18 22:30 LRO (Rec: 04/27/18 03:08 LRO [email or web address]) Nocturnal Pulse Oximetry Equipment Usage Initial Set Up Nocturnal Spo2 Charge Charge Now O2 Sat by Pulse Oximetry (92-100) 96 Continuous Pulse Oximeter Set Up Yes Continuous SpO2 Machine # 8 Intake & Output 04/26/18 04/27/18 04/28/18 06:59 06:59 06:59 Intake Total 4331 3391 2862 Output Total 1100 Balance 3231 3391 2862 Weight 154.8 kg 155.5 kg General appearance: PRESENT: no acute distress, cooperative, disheveled, morbidly obese Head exam: PRESENT: atraumatic, normocephalic Eye exam: PRESENT: conjunctiva pale, EOMI. ABSENT: nystagmus, scleral icterus Mouth exam: PRESENT: dry mucosa, neck supple, tongue midline Neck exam: ABSENT: carotid bruit, JVD, lymphadenopathy, thyromegaly, tracheal deviation, tracheostomy Respiratory exam: PRESENT: decreased breath sounds, prolonged expiratory phas, rhonchi, unlabored. ABSENT: rales, retraction, stridor Cardiovascular exam: PRESENT: RRR, +S1, +S2 Pulses: PRESENT: normal radial pulses GI/Abdominal exam: PRESENT: soft. ABSENT: tenderness Extremities exam: ABSENT: calf tenderness, clubbing, joint swelling Musculoskeletal exam: PRESENT: ambulatory. ABSENT: deformity, dislocation Neurological exam: PRESENT: alert, awake Psychiatric exam: PRESENT: normal mood Skin exam: PRESENT: dry, warm Results Laboratory Results: 04/27/18 04:52 04/27/18 04:52 04/27/18 04/27/18 04:52 04:52 WBC 8.5 RBC 5.44 Hgb 11.7 L Hct 36.6 L MCV 67 L MCH 21.5 L MCHC 31.9 L RDW 13.9 Plt Count 305 Seg Neutrophils % 64.3 Lymphocytes % 23.1 Monocytes % 10.6 Eosinophils % 1.4 Basophils % 0.6 Absolute Neutrophils 5.5 Absolute Lymphocytes 2.0 Absolute Monocytes 0.9 Absolute Eosinophils 0.1 Absolute Basophils 0.1 Sodium 138.4 Potassium 4.3 Chloride 104 Carbon Dioxide 26 Anion Gap 8 BUN 10 Creatinine 0.57 Est GFR ( Amer) > 60 Est GFR (Non-Af Amer) > 60 Glucose 212 H Calcium 9.2 Total Bilirubin 2.5 H AST 58 ALT 53 Alkaline Phosphatase 111 Total Protein 6.0 L Albumin 3.2 L 04/23/18 08:37 Throat Throat Culture - Final NORMAL MIRIAN Impressions: KUB X-Ray 04/22/18 13:59 IMPRESSION: NO RADIOGRAPHIC EVIDENCE FOR ACUTE ABDOMINAL DISEASE. Chest X-Ray 04/25/18 06:00 IMPRESSION: NO ACUTE RADIOGRAPHIC FINDING IN THE CHEST. Facial Bones CT 04/26/18 13:18 IMPRESSION: Unremarkable CT of the facial bones and the paranasal sinuses TECHNICAL DOCUMENTATION: Quality ID # 436: Final reports with documentation of one or more dose reduction techniques (e.g., Automated exposure control, adjustment of the mA and/or kV according to patient size, use of iterative reconstruction technique) 2010 [employer]- All Rights Reserved Assessment & Plan - Diagnosis (1) Obesity Qualifiers: Obesity type: due to excess calories Body mass index: BMI 40.0-44.9 Is this a current diagnosis for this admission?: Yes (2) DKA (diabetic ketoacidoses) Qualifiers: Diabetes mellitus type: other specified (including PEÑA) Diabetes mellitus complication detail: without coma Qualified Code(s): E13.10 - Other specified diabetes mellitus with ketoacidosis without coma Is this a current diagnosis for this admission?: Yes Plan: Controlled (3) BIMAL (obstructive sleep apnea) Is this a current diagnosis for this admission?: Yes Plan: Advised the [place] for his healthcare preapproval will be necessary before sleep study (4) Elevated bilirubin Is this a current diagnosis for this admission?: Yes
[2018-04-27] MEDS: ACETAMINOPHEN 325 MG TABLET PO PRN (19:46)
[2018-04-27] MEDS: ATORVASTATIN CALCIUM 40 MG TABLET PO SCH (21:45)
[2018-04-28] MEDS: NYSTATIN 500000 UNIT/5 ML UDCUP PO SCH ×3 (01:58→11:40)
[2018-04-28 05:01] LABS: ABSOLUTE BASOPHILS # (AUTO) 0.1 10^3/uL (0.0-0.2); ABSOLUTE EOSINOPHILS # (AUTO) 0.1 10^3/uL (0.0-0.6); ABSOLUTE LYMPHOCYTES (AUTO) 2.3 10^3/uL (0.5-4.7); ABSOLUTE NEUT (AUTO) 6.5 10^3/uL (1.7-8.2); BASOPHILS % (AUTO) 0.7 % (0-2); EOSINOPHILS % (AUTO) 1.1 % (0-6); HEMATOCRIT 35.5 % (37.9-51.0); HEMOGLOBIN 11.3 g/dL (13.5-17.0); MEAN CORPUSCULAR HEMOGLOBIN 21.4 pg (27.0-33.4); MEAN CORPUSCULAR HGB CONC 31.7 g/dL (32.0-36.0); MEAN CORPUSCULAR VOLUME 68 fl (80-97); MONOCYTES % (AUTO) 9.9 % (3-13); PLATELET COUNT 313 10^3/uL (150-450); RED BLOOD COUNT 5.26 10^6/uL (4.35-5.55); SEGMENTED NEUTROPHILS % (AUTO) 65.3 % (42-78); TOTAL CELLS COUNTED % (AUTO) 100 %; WHITE BLOOD COUNT 9.9 10^3/uL (4.0-10.5)
[2018-04-28 05:31] LABS: ALANINE AMINOTRANSFERASE 62 U/L (21-72); ALBUMIN 3.2 g/dL (3.5-5.0); ALKALINE PHOSPHATASE 102 U/L (38-126); ANION GAP 7 (5-19); ASPARTATE AMINO TRANSFERASE 76 U/L (17-59); BILIRUBIN,DIRECT 0.4 mg/dL (0.0-0.4); BLOOD UREA NITROGEN 10 mg/dL (7-20); CALCIUM 9.2 mg/dL (8.4-10.2); CARBON DIOXIDE 27 mmol/L (22-30); CHLORIDE 104 mmol/L (98-107); GLUCOSE 222 mg/dL (75-110); POTASSIUM 4.3 mmol/L (3.6-5.0); SODIUM 137.7 mmol/L (137-145); TOTAL PROTEIN 5.8 g/dL (6.3-8.2)
[2018-04-28] MEDS: LANSOPRAZOLE 30 MG TAB.RAP.DR PO SCH (06:32)
[2018-04-28] MEDS: INSULIN LISPRO 100 UNIT/ML 3 ML VIAL SUBCUT PRN ×2 (07:31→11:41)
[2018-04-28] MEDS: INSULIN LISPRO 100 UNIT/ML 3 ML VIAL SUBCUT SCH ×3 (07:31→11:41)
[2018-04-28] MEDS ORDERED: INSULIN DETEMIR 100 UNIT/ML 3 ML PEN SUBCUT SCH (07:54)
--- NOTE | 2018-04-28 08:02 | RADIOLOGY REPORT (SQ) ---
CLINICAL DATA: 43-year-old male with elevated bilirubin. TECHNICAL DATA: Limited sonographic imaging of the right upper quadrant was performed. Comparison: None. FINDINGS: The liver is enlarged and measures 21 cm in length. The liver demonstrates increased echogenicity which is commonly seen with fatty infiltration. No focal hepatic abnormalities are identified. Doppler imaging reveals patency of the portal vein and normal hepatopedal flow. The gallbladder is well distended and normal in appearance. There is no evidence of cholelithiasis. No sonographic Byrne sign was detected by the technologist. The gallbladder wall measures 3 mm in diameter. The common bile duct measures 2 mm in diameter. There is no evidence of biliary ductal dilatation. The right kidney is normal in size, shape and echogenicity without hydronephrosis or definite nephrolithiasis. The right kidney measures 11.6 cm in length. There is no evidence of free fluid in the abdomen. The head of the pancreas is grossly unremarkable. The body and tail of the pancreas are obscured by bowel gas. The aorta is normal in caliber and contour and tapers distally. The inferior vena cava is grossly unremarkable. IMPRESSION: 1. Hepatomegaly and fatty infiltration of the liver. 2. No evidence of cholelithiasis or biliary ductal dilatation. 3. Otherwise, unremarkable right upper quadrant ultrasound.
[2018-04-28] MEDS: NYSTATIN TOPICAL POWDER 15 GM TP SCH (09:16)
[2018-04-28] MEDS: FLUTICASONE NASAL SPRAY 50 MCG/SPRY 120 SPRAY/16 GM NASL SCH (09:17)
[2018-04-28] MEDS: ENOXAPARIN SODIUM INJ 30 MG/0.3 ML DISP.SYRIN SUBCUT SCH (09:19)
[2018-04-28] MEDS: CETIRIZINE 5 MG TABLET PO SCH (09:19)
[2018-04-28] MEDS: LISINOPRIL 5 MG TABLET PO SCH (09:19)
--- NOTE | 2018-04-28 15:19 | PDOC DISCHARGE SUMMARY ---
General - Admit/Disc Date/PCP Admission Date/Primary Care Provider: 04/22/18 16:36 SHILA VILLA MD Discharge Date: 04/28/18 - Discharge Diagnosis (1) BIMAL (obstructive sleep apnea) Is this a current diagnosis for this admission?: Yes (2) DKA (diabetic ketoacidoses) Is this a current diagnosis for this admission?: Yes (3) Acute kidney injury Is this a current diagnosis for this admission?: Yes (4) Diabetes mellitus, new onset Is this a current diagnosis for this admission?: Yes (5) High anion gap metabolic acidosis Is this a current diagnosis for this admission?: Yes (6) Obesity Is this a current diagnosis for this admission?: Yes (7) Dyslipidemia Is this a current diagnosis for this admission?: Yes (8) Oral candidiasis Is this a current diagnosis for this admission?: Yes - Additional Information Discharge Diet: As Tolerated Discharge Activity: Activity As Tolerated Prescriptions: Atorvastatin Calcium [Lipitor 40 mg Tablet] 40 mg PO QHS 30 Days #30 tablet Insulin Detemir [Levemir Insulin 100 units/mL] 47 unit SUBCUT QHS 30 Days #5 insuln.pen Insulin Lispro [Humalog Insulin (Lispro) 100 unit/mL] 17 unit SUBCUT AC 30 Days #5 each Lansoprazole [Prevacid 30 mg Odt Tablet] 30 mg PO BID@0600,1700 42 Days #42 tab.rap. Lisinopril [Prinivil 5 mg Tablet] 2.5 mg PO DAILY 30 Days #30 tablet Nystatin [Mycostatin 500,000 Unit/5 ml Susp Udcup] 100,000 unit PO Q6 7 Days #1 udc Home Medications: Atorvastatin Calcium [Lipitor 40 mg Tablet] 40 mg PO QHS 30 Days #30 tablet 12/09 Insulin Detemir [Levemir Insulin 100 units/mL] 47 unit SUBCUT QHS 30 Days #5 insuln.pen 04/28/18 Insulin Lispro [Humalog Insulin (Lispro) 100 unit/mL] 17 unit SUBCUT AC 30 Days #5 each 04/28/18 Lansoprazole [Prevacid 30 mg Odt Tablet] 30 mg PO BID@0600,1700 42 Days #42 tab.rap 04/28/18 Lisinopril [Prinivil 5 mg Tablet] 2.5 mg PO DAILY 30 Days #30 tablet 10/05/18 Nystatin [Mycostatin 500,000 Unit/5 ml Susp Udcup] 100,000 unit PO Q6 7 Days #1 udc 04/28/18 History of Present Illness History of Present Illness: DELMA LOCKE is a 43 year old male male denies any significant past medical history except for sleep apnea using CPAP at home. Patient was admitted on 04/22 with severe DKA anion gap of 38. He states he has been having polydipsia polyuria and polyphagia for long time however he was not told that he has diabetes. History of obstructive sleep apnea on physical examination patient has a low-lying palate, large tongue which puts him at Mallampati stage IV Hospital Course Hospital Course: (1) BIMAL (obstructive sleep apnea) Tolerated BiPAP. Recommendation is for patient to have a sleep study on the day of discharge, but unfortunately [facility] and to arrange for a sleep study on the day of discharge patient needs preauthorization. We [facility] able [facility] and patient left with his BiPAP. Prescription was provided by optimization engineer and parameters were also set by him. He needs a follow-up with Dr. Scott as outpatient in his PCP. (2) DKA (diabetic ketoacidoses) Resolved. Anion gap WNL. DKA most likely due to severely uncontrolled and undiagnosed diabetes. Insulin was adjusted. Levemir 47 units nightly and NovoLog 17 units pre-meal. Patient is very concerned about his newly diagnosed diabetes. He was extensively counseled about diabetes, its management and complication. Patient was advised to follow-up with his PCP after his discharge from hospital and also to log his blood sugar level at home and take it to his PCP so that his insulin dosage could be managed. Patient received diabetes education by nursing staff while in the hospital. Patient was also advised to follow-up with cyber security administrator and PCP to find out if patient has diabetes type 2 or type I. (3) Acute kidney injury Resolved. Possibly prerenal caused by severe dehydration and DKA. Follow-up with PCP and nephrology. Avoid nephrotoxic agents. Treat diabetes. (4) Diabetes mellitus, new onset Denies any personal or family history of diabetes. However he states that he has been having polyphagia, polydipsia, polyuria for the last 2 years and was never told that he has diabetes. Hemoglobin A1c is more than 14% on admission. Glucose levels trending down currently less than 100 on discharge. Patient to continue his insulin and follow-up with his PCP to adjust his medication. He was started on low-dose metformin to be increased as tolerated also to follow- up with his PCP to adjust his medication. (5) High anion gap metabolic acidosis Secondary to DKA. Resolved. (6) Obesity Patient was counseled on diet and lifestyle modification. Patient was counseled about lifestyle modification. (7) Dyslipidemia ASCVD score of 8.8%. Started on high intensity statins. Diet and lifestyle modification. (8) Oral candidiasis Improving. Secondary to uncontrolled diabetes. Continue oral nystatin. Patient has been complaining of right facial she which is also improving. CT face was negative. Physical Exam Vital Signs: Temp Pulse Resp BP Pulse Ox 98.0 F 99 18 135/83 H 99 04/28/18 11:31 04/28/18 11:31 04/28/18 11:31 04/28/18 11:31 04/28/18 11:31 Pulse Oximeter Nocturnal Start: 04/26/18 08: 34 Freq: [facility] Status: Complete Document 04/26/18 22:30 LRO (Rec: 04/27/18 03:08 LRO [email or web address]) Nocturnal Pulse Oximetry Equipment Usage Initial Set Up Nocturnal Spo2 Charge Charge Now O2 Sat by Pulse Oximetry (92-100) 96 Continuous Pulse Oximeter Set Up Yes Continuous SpO2 Machine # 8 Pulse Oximeter Nocturnal Start: 04/27/18 13: 20 Freq: Q Status: Active Document 04/28/18 04:24 SFL (Rec: 04/28/18 04:24 SFL [email or web address]) Nocturnal Pulse Oximetry Equipment Usage Equipment in Use Oxygen Delivery Method (includes room Nasal Cannula air) O2 Sat by Pulse Oximetry (92-100) 100 Continuous SpO2 Machine # 10 Intake & Output 04/27/18 04/28/18 04/29/18 06:59 06:59 06:59 Intake Total 3391 4944 1800 Balance 3391 4944 1800 Weight 155.5 kg 156.7 kg General appearance: PRESENT: no acute distress, well-developed, well-nourished Head exam: PRESENT: atraumatic, normocephalic Eye exam: PRESENT: conjunctiva pink, EOMI, PERRLA. ABSENT: scleral icterus Ear exam: PRESENT: normal external ear exam Mouth exam: PRESENT: moist, tongue midline Neck exam: ABSENT: carotid bruit, JVD, lymphadenopathy, thyromegaly Respiratory exam: PRESENT: clear to auscultation muna. ABSENT: rales, rhonchi, wheezes Cardiovascular exam: PRESENT: RRR. ABSENT: diastolic murmur, rubs, systolic murmur Pulses: PRESENT: normal dorsalis pedis pul Vascular exam: PRESENT: normal capillary refill GI/Abdominal exam: PRESENT: normal bowel sounds, soft. ABSENT: distended, guarding, mass, organolmegaly, rebound, tenderness Rectal exam: PRESENT: deferred Extremities exam: PRESENT: full ROM. ABSENT: calf tenderness, clubbing, pedal edema Neurological exam: PRESENT: alert, awake, oriented to person, oriented to place , oriented to time, oriented to situation, CN II-XII grossly intact. ABSENT: motor sensory deficit Psychiatric exam: PRESENT: appropriate affect, normal mood. ABSENT: homicidal ideation, suicidal ideation Skin exam: PRESENT: dry, intact, warm. ABSENT: cyanosis, rash Results Laboratory Results: 04/28/18 04:24 04/28/18 04:24 04/28/18 04/28/18 04:24 04:24 WBC 9.9 RBC 5.26 Hgb 11.3 L Hct 35.5 L MCV 68 L MCH 21.4 L MCHC 31.7 L RDW 14.0 Plt Count 313 Seg Neutrophils % 65.3 Lymphocytes % 23.0 Monocytes % 9.9 Eosinophils % 1.1 Basophils % 0.7 Absolute Neutrophils 6.5 Absolute Lymphocytes 2.3 Absolute Monocytes 1.0 Absolute Eosinophils 0.1 Absolute Basophils 0.1 Sodium 137.7 Potassium 4.3 Chloride 104 Carbon Dioxide 27 Anion Gap 7 BUN 10 Creatinine 0.56 Est GFR ( Amer) > 60 Est GFR (Non-Af Amer) > 60 Glucose 222 H Calcium 9.2 Total Bilirubin 2.0 H AST 76 H ALT 62 Alkaline Phosphatase 102 Total Protein 5.8 L Albumin 3.2 L 04/22/18 19:12 Blood Blood Culture - Final NO GROWTH IN 5 DAYS 04/22/18 18:00 Blood Blood Culture - Final NO GROWTH IN 5 DAYS Impressions: KUB X-Ray 04/22/18 13:59 IMPRESSION: NO RADIOGRAPHIC EVIDENCE FOR ACUTE ABDOMINAL DISEASE. Chest X-Ray 04/25/18 06:00 IMPRESSION: NO ACUTE RADIOGRAPHIC FINDING IN THE CHEST. Facial Bones CT 04/26/18 13:18 IMPRESSION: Unremarkable CT of the facial bones and the paranasal sinuses TECHNICAL DOCUMENTATION: Quality ID # 436: Final reports with documentation of one or more dose reduction techniques (e.g., Automated exposure control, adjustment of the mA and/or kV according to patient size, use of iterative reconstruction technique) 2010 [employer]- All Rights Reserved Abdomen Ultrasound 04/28/18 05:00 IMPRESSION: 1. Hepatomegaly and fatty infiltration of the liver. 2. No evidence of cholelithiasis or biliary ductal dilatation. 3. Otherwise, unremarkable right upper quadrant ultrasound. Qualifiers - * PATIENT BEING DISCHARGED WITH ANY OF THE FOLLOWING DIAGNOSIS: No VTE patient discharged on overlapping Therapy?: Yes
[2018-04-28 15:51] VITALS: BP 119/73
[2018-04-28] MEDS ORDERED: METFORMIN HCL 500 MG TABLET PO SCH (16:00)
--- NOTE | 2018-04-30 14:47 | PDOC PROGRESS REPORT ---
Subjective Progress Note for:: 04/28/18 Subjective:: Stable over the last 24 hours Reason For Visit: SEVERE DKA Physical Exam Vital Signs: Temp Pulse Resp BP Pulse Ox 97.8 F 91 18 129/87 H 99 04/28/18 07:07 04/28/18 07:07 04/28/18 07:07 04/28/18 07:07 04/28/18 07:07 Pulse Oximeter Nocturnal Start: 04/26/18 08: 34 Freq: Q Status: Complete Document 04/26/18 22:30 LRO (Rec: 04/27/18 03:08 LRO [id number]) Nocturnal Pulse Oximetry Equipment Usage Initial Set Up Nocturnal Spo2 Charge Charge Now O2 Sat by Pulse Oximetry (92-100) 96 Continuous Pulse Oximeter Set Up Yes Continuous SpO2 Machine # 8 Pulse Oximeter Nocturnal Start: 04/27/18 13: 20 Freq: Q Status: Active Document 04/28/18 04:24 SFL (Rec: 04/28/18 04:24 SFL [id number]) Nocturnal Pulse Oximetry Equipment Usage Equipment in Use Oxygen Delivery Method (includes room Nasal Cannula air) O2 Sat by Pulse Oximetry (92-100) 100 Continuous SpO2 Machine # 10 Intake & Output 04/27/18 04/28/18 04/29/18 06:59 06:59 06:59 Intake Total 3391 4944 Balance 3391 4944 Weight 155.5 kg 156.7 kg General appearance: PRESENT: no acute distress, cooperative, disheveled, morbidly obese Head exam: PRESENT: atraumatic, normocephalic Eye exam: PRESENT: conjunctiva pale, EOMI. ABSENT: nystagmus, scleral icterus Mouth exam: PRESENT: moist, neck supple, tongue midline Neck exam: ABSENT: carotid bruit, JVD, lymphadenopathy, thyromegaly, tracheal deviation, tracheostomy Respiratory exam: PRESENT: decreased breath sounds, prolonged expiratory phas, rhonchi, unlabored. ABSENT: retraction, stridor, tachypnea Cardiovascular exam: PRESENT: RRR, +S1, +S2 Pulses: PRESENT: normal radial pulses GI/Abdominal exam: PRESENT: soft. ABSENT: tenderness Extremities exam: PRESENT: pedal edema. ABSENT: calf tenderness, clubbing, joint swelling Musculoskeletal exam: PRESENT: ambulatory. ABSENT: deformity, dislocation Neurological exam: PRESENT: alert, awake Psychiatric exam: PRESENT: normal mood Skin exam: PRESENT: dry, warm Results Laboratory Results: 04/28/18 04:24 04/28/18 04:24 04/28/18 04/28/18 04:24 04:24 WBC 9.9 RBC 5.26 Hgb 11.3 L Hct 35.5 L MCV 68 L MCH 21.4 L MCHC 31.7 L RDW 14.0 Plt Count 313 Seg Neutrophils % 65.3 Lymphocytes % 23.0 Monocytes % 9.9 Eosinophils % 1.1 Basophils % 0.7 Absolute Neutrophils 6.5 Absolute Lymphocytes 2.3 Absolute Monocytes 1.0 Absolute Eosinophils 0.1 Absolute Basophils 0.1 Sodium 137.7 Potassium 4.3 Chloride 104 Carbon Dioxide 27 Anion Gap 7 BUN 10 Creatinine 0.56 Est GFR ( Amer) > 60 Est GFR (Non-Af Amer) > 60 Glucose 222 H Calcium 9.2 Total Bilirubin 2.0 H AST 76 H ALT 62 Alkaline Phosphatase 102 Total Protein 5.8 L Albumin 3.2 L 04/22/18 19:12 Blood Blood Culture - Final NO GROWTH IN 5 DAYS 04/22/18 18:00 Blood Blood Culture - Final NO GROWTH IN 5 DAYS Impressions: KUB X-Ray 04/22/18 13:59 IMPRESSION: NO RADIOGRAPHIC EVIDENCE FOR ACUTE ABDOMINAL DISEASE. Chest X-Ray 04/25/18 06:00 IMPRESSION: NO ACUTE RADIOGRAPHIC FINDING IN THE CHEST. Facial Bones CT 04/26/18 13:18 IMPRESSION: Unremarkable CT of the facial bones and the paranasal sinuses TECHNICAL DOCUMENTATION: Quality ID # [id number]: Final reports with documentation of one or more dose reduction techniques (e.g., Automated exposure control, adjustment of the mA and/or kV according to patient size, use of iterative reconstruction technique) 2010 [employer]- All Rights Reserved Abdomen Ultrasound 04/28/18 05:00 IMPRESSION: 1. Hepatomegaly and fatty infiltration of the liver. 2. No evidence of cholelithiasis or biliary ductal dilatation. 3. Otherwise, unremarkable right upper quadrant ultrasound. Assessment & Plan - Diagnosis (1) Obesity Qualifiers: Obesity type: due to excess calories Body mass index: BMI 40.0-44.9 Is this a current diagnosis for this admission?: Yes (2) DKA (diabetic ketoacidoses) Qualifiers: Diabetes mellitus type: other specified (including PEÑA) Diabetes mellitus complication detail: without coma Qualified Code(s): E13.10 - Other specified diabetes mellitus with ketoacidosis without coma Is this a current diagnosis for this admission?: No (3) BIMAL (obstructive sleep apnea) Is this a current diagnosis for this admission?: Yes Plan: [facility] will be necessary before sleep study (4) Elevated bilirubin Is this a current diagnosis for this admission?: Yes
== END 2018-04-28 16:11 | disposition home or self-care (01) | DRG 638 ==
LOC: ER 13:12 → EH 16:36 → ICU 17:35 → 3W 04-24 14:15
PROVIDERS: ADMIT Internal Medicine; ATTEND Internal Medicine
PROC: 5A09457 Assistance with Respiratory Ventilation, 24-96 Consecutive Hours, Continuous Positive Airway Pressure (ICD-10-PCS; principal; 2018-04-22)
DX: E13.10 Other specified diabetes mellitus with ketoacidosis without coma (principal); N17.9 Acute kidney failure, unspecified; B37.0 Candidal stomatitis; Z68.41 Body mass index [BMI] 40.0-44.9, adult; E10.10 Type 1 diabetes mellitus with ketoacidosis without coma; E78.00 Pure hypercholesterolemia, unspecified; I10 Essential (primary) hypertension; G47.33 Obstructive sleep apnea (adult) (pediatric); E66.09 Other obesity due to excess calories; J34.89 Other specified disorders of nose and nasal sinuses; R19.7 Diarrhea, unspecified; E86.0 Dehydration; K76.0 Fatty (change of) liver, not elsewhere classified; E87.5 Hyperkalemia; Z79.899 Other long term (current) drug therapy; Z80.9 Family history of malignant neoplasm, unspecified
CPT/HCPCS: 36415; 70487; 71045; 74018; 76705; 80048; 80053; 80061; 81001; 82803; 82962; 83036; 83605; 83690; 83735; 85025; 87040; 87070; 87880; 93005; 93010; 94010; 94660; 94762; 96361; 96374; 99291; J1650; J1815; J2405; J3490

== ENCOUNTER 2020-01-24 19:07 | Emergency (ER) | payer OTHER ==
[2020-01-24] MEDS ORDERED: ACETAMINOPHEN 325 MG TABLET PO ONE (20:31)
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
[2020-01-24 21:14] LABS: ABSOLUTE BASOPHILS # (AUTO) 0.1 10^3/uL (0.0-0.2); ABSOLUTE EOSINOPHILS # (AUTO) 0.1 10^3/uL (0.0-0.6); ABSOLUTE LYMPHOCYTES (AUTO) 2.7 10^3/uL (0.5-4.7); ABSOLUTE MONOCYTES (AUTO) 1.1 10^3/uL (0.1-1.4); ABSOLUTE NEUT (AUTO) 7.3 10^3/uL (1.7-8.2); BASOPHILS % (AUTO) 0.7 % (0-2); EOSINOPHILS % (AUTO) 0.7 % (0-6); HEMATOCRIT 43.6 % (37.9-51.0); HEMOGLOBIN 13.7 g/dL (13.5-17.0); MEAN CORPUSCULAR HEMOGLOBIN 21.6 pg (27.0-33.4); MEAN CORPUSCULAR HGB CONC 31.5 g/dL (32.0-36.0); MEAN CORPUSCULAR VOLUME 69 fl (80-97); MONOCYTES % (AUTO) 9.7 % (3-13); PLATELET COUNT 254 10^3/uL (150-450); RED BLOOD COUNT 6.36 10^6/uL (4.35-5.55); RED CELL DISTRIBUTION WIDTH 15.1 % (11.5-14.0); SEGMENTED NEUTROPHILS % (AUTO) 64.9 % (42-78); TOTAL CELLS COUNTED % (AUTO) 100 %; WHITE BLOOD COUNT 11.3 10^3/uL (4.0-10.5)
[2020-01-24 21:31] LABS: ALBUMIN 4.6 g/dL (3.5-5.0); ALKALINE PHOSPHATASE 87 U/L (38-126); ANION GAP 8 (5-19); ASPARTATE AMINO TRANSFERASE 53 U/L (17-59); BILIRUBIN,TOTAL 0.7 mg/dL (0.2-1.3); BLOOD UREA NITROGEN 10 mg/dL (7-20); CALCIUM 10.2 mg/dL (8.4-10.2); CARBON DIOXIDE 31 mmol/L (22-30); CHLORIDE 100 mmol/L (98-107); GLUCOSE 126 mg/dL (75-110); TOTAL PROTEIN 7.8 g/dL (6.3-8.2)
--- NOTE | 2020-01-24 22:30 | EKG REPORT ---
SEVERITY:- ABNORMAL ECG - SINUS OR ECTOPIC ATRIAL RHYTHM LEFT ATRIAL ABNORMALITY RIGHT AXIS DEVIATION LOW VOLTAGE IN FRONTAL LEADS NONSPECIFIC T ABNORMALITIES, LATERAL LEADS : Confirmed by: Lissa Bauman MD 24-Jan-2020 22:29:58
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
[2020-01-25] MEDS ORDERED: CYCLOBENZAPRINE HCL 10 MG TABLET PO ONE (04:03)
[2020-01-25 04:15] VITALS: BP 131/89
== END 2020-01-25 04:12 | disposition home or self-care (01) ==
LOC: ER 19:07
DX: S00.03XA Contusion of scalp, initial encounter (principal); S06.0X9A Concussion with loss of consciousness of unspecified duration, initial encounter; R07.89 Other chest pain; M25.562 Pain in left knee; V43.52XA Car driver injured in collision with other type car in traffic accident, initial encounter; I10 Essential (primary) hypertension; E11.9 Type 2 diabetes mellitus without complications
CPT/HCPCS: 36415; 70450; 71250; 80053; 84484; 85025; 93005; 93010; 99283